=== PATIENT | female | born 1940 | race Caucasian/White ===

== ENCOUNTER 2017-02-22 14:34 | Inpatient (IN) | payer MEDICARE, OTHER ==
[2017-02-22] MEDS ORDERED: Sodium Chloride 0.9% 1,000 ML IV SCH (15:00)
--- NOTE | 2017-02-22 15:37 | EDM.PDOC ---
ED HPI GENERAL MEDICAL PROBLEM - General Chief Complaint: Gastrointestinal Problem Stated Complaint: ILLNESS VIA [facility] Time Seen by Provider: 02/22/17 14:55 Source of Information: Reports: Patient History Limitations: Reports: No Limitations - History of Present Illness INITIAL COMMENTS - FREE TEXT/NARRATIVE: Pt arrivd with history of frequent urination and 2 episodes where she fell and may have passed out. Onset: Today Duration: Hour(s): Location: Reports: Abdomen Associated Symptoms: Reports: Malaise, Syncope, Other ( diarrhea) Lower Back Pain Score (Numeric/FACES): 8 - Related Data Allergies Allergy/AdvReac Type Severity Reaction Status Date / Time amlodipine Allergy Cannot Verified 04/16/15 10:06 Remember ampicillin Allergy Cannot Verified 04/16/15 10:06 Remember aspirin Allergy Cannot Verified 04/16/15 10:06 Remember cephalexin monohydrate Allergy Cannot Verified 04/16/15 10:06 [From Keflex] Remember Cephalosporins Allergy Cannot Verified 04/16/15 10:06 Remember diltiazem Allergy Cannot Verified 04/16/15 10:06 Remember Penicillins Allergy Cannot Verified 04/16/15 10:06 Remember Sulfa (Sulfonamide Allergy Cannot Verified 04/16/15 10:06 Antibiotics) Remember FLU SHOT Allergy Cannot Uncoded 04/16/15 10:06 Remember Home Meds: Home Meds Doxazosin [Cardura] 2 mg PO DAILY 04/16/15 [History] Metoprolol Tartrate 50 mg PO BID 04/16/15 [History] Multivitamin [Daily Multiple Vitamin] 1 tab PO DAILY 04/16/15 [History] Simvastatin [Zocor] 20 mg PO BEDTIME 04/16/15 [History] Spironolact/Hydrochlorothiazid [Spironolactone-HCTZ 25-25] 1 tab PO DAILY [History] Flecainide Acetate [Flecainide Acetate] 1 tab PO BID 02/22/17 [History] Warfarin [Coumadin] 5 mg PO ASDIRECTED 02/22/17 [History] Past Medical History HEENT History: Reports: Impaired Vision Cardiovascular History: Reports: Afib, High Cholesterol Other Cardiovascular History: cardioversion April, Respiratory History: Reports: Bronchitis, Recurrent Gastrointestinal History: Reports: Chronic Diarrhea Other Gastrointestinal History: diarrhea last 1.5 months Musculoskeletal History: Reports: Osteoporosis Oncologic (Cancer) History: Reports: Other (See Below) Other Oncologic History: skin Dermatologic History: Reports: Other (See Below) Other Dermatologic History: 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 - Infectious Disease History Infectious Disease History: Reports: Chicken Pox, Measles, Mumps - Past Surgical History HEENT Surgical History: Reports: Eye Surgery, Tonsillectomy Musculoskeletal Surgical History: Reports: None Dermatological Surgical History: Reports: Skin Biopsy Social & Family History - Family History Family Medical History: Noncontributory - Tobacco Use Smoking Status *Q: Never Smoker Second Hand Smoke Exposure: No - Caffeine Use Caffeine Use: Reports: Coffee - Recreational Drug Use Recreational Drug Use: No ED ROS GENERAL - Review of Systems Review Of Systems: See Below Constitutional: Reports: No Symptoms, Malaise, Weakness HEENT: Reports: No Symptoms Respiratory: Reports: No Symptoms Cardiovascular: Reports: Syncope Endocrine: Reports: No Symptoms GI/Abdominal: Reports: Diarrhea, Other (pt had 2 loose stools ) : Reports: Frequency, Incontinence Musculoskeletal: Reports: No Symptoms Skin: Reports: No Symptoms Neurological: Reports: Syncope Psychiatric: Reports: No Symptoms Hematologic/Lymphatic: Reports: No Symptoms ED EXAM, RENAL/ - Physical Exam Exam: See Below Text/Narrative:: pt arrived with a history of diarrha, 2 syncopal episodes today. She hit her left hip and had some pain in that. She does not have a headache. Exam Limited By: No Limitations General Appearance: Alert, Anxious, Mild Distress, Other (pt is having difficulty giving a clear cut history. pupils are equal and reactive. ) Ears: Normal TMs Nose: Normal Inspection Throat/Mouth: Normal Inspection Head: Atraumatic Neck: Normal Inspection Respiratory/Chest: No Respiratory Distress Cardiovascular: Regular Rate, Rhythm, Tachycardia, Other (pt has atrial fib which is chronic for her. She is on coumadin. ) GI/Abdominal: Soft, Non-Tender (Female) Exam: Deferred Rectal (Female) Exam: Deferred Back Exam: Normal Inspection Extremities: Normal Inspection Neurological: Alert, Oriented, Other (pt is having difficulty giving a clear cut history. ) Course - Vital Signs Last Recorded V/S: Last Vital Signs Temp 36.6 C 02/22/17 15:06 Pulse 112 H 02/22/17 17:07 Resp 16 02/22/17 17:07 BP 102/63 02/22/17 17:07 Pulse Ox 97 01/15/18 17:07 Orthostatic Blood Pressure [ 102/63 Standing] Orthostatic Blood Pressure [ 106/61 Sitting] Orthostatic Blood Pressure [ 111/63 Supine] - Orders/Labs/Meds Orders: Active Orders 24 hr Category Date Time Status EKG Documentation Completion [RC] ASDIRECTED Care 02/22/17 14:56 Active Orthostatic Vital Signs [RC] ASDIRECTED Care 02/22/17 15:24 Active Head wo Cont [CT] Stat Exams 02/22/17 16:26 Ordered Hip Min 2V or 3V Lt [CR] Stat Exams 02/22/17 14:58 Taken Lumbar Spine 2 or 3V [CR] Stat Exams 02/22/17 14:57 Taken Sodium Chloride 0.9% [Normal Saline] 1,000 ml Med 02/22/17 15:00 Active IV ASDIRECTED Sodium Chloride 0.9% with KCl [Normal Saline with 40 Med 02/22/17 16:00 Active mEq KCl] 1,000 ml IV ASDIRECTED EKG 12 Lead [EK] Routine Ther 02/22/17 14:56 Ordered Medication Orders Sodium Chloride (Normal Saline) 1,000 mls @ 999 mls/hr IV ASDIRECTED FADY Last Admin: 02/22/17 15:00 Dose: 999 mls/hr Potassium Chloride/Sodium Chloride (Normal Saline With 40 Meq Kcl) 1,000 mls @ 200 mls/hr IV ASDIRECTED FADY Last Admin: 02/22/17 16:23 Dose: 200 mls/hr Labs: Laboratory Tests 02/22/17 02/22/17 02/22/17 Range/Units 14:54 14:54 14:54 WBC 10.1 (4.5-11.0) K/uL RBC 4.88 (3.30-5.50) M/uL Hgb 16.0 H (12.0-15.0) g/dL Hct 45.4 (36.0-48.0) % MCV 93 (80-98) fL MCH 33 H (27-31) pg MCHC 35 (32-36) % Plt Count 231 (150-400) K/uL Neut % (Auto) 78 H (36-66) % Lymph % (Auto) 16 L (24-44) % [place] % (Auto) 7 H (2-6) % Eos % (Auto) 0 L (2-4) % Baso % (Auto) 0 (0-1) % PT 41.5 H (9.5-12.0) sec INR 3.67 H (0.80-1.20) Sodium 137 L (140-148) mmol/L Potassium 3.1 L (3.6-5.2) mmol/L Chloride 90 L (100-108) mmol/L Carbon Dioxide 34 H (21-32) mmol/L Anion Gap 16.1 H (5.0-14.0) mmol/L BUN 47 H (7-18) mg/dL Creatinine 1.8 H (0.6-1.0) mg/dL Est Cr Clr Drug Dosing 19.70 mL/min Estimated GFR (MDRD) 28 L (>60) Glucose 121 H (74-106) mg/dL Calcium 9.7 (8.5-10.1) mg/dL Total Bilirubin 1.5 H (0.2-1.0) mg/dL AST 32 (15-37) U/L ALT 26 (12-78) U/L Alkaline Phosphatase 111 (46-116) U/L Total Protein 7.5 (6.4-8.2) g/dL Albumin 3.8 (3.4-5.0) g/dL Globulin 3.7 H (2.3-3.5) g/dL Albumin/Globulin Ratio 1.0 L (1.2-2.2) Urine Color Urine Appearance Urine pH (4.5-8.0) Ur Specific [place] (1.008-1.030) Urine Protein (NEGATIVE) mg/dL Urine Glucose (UA) (NEGATIVE) mg/dL Urine Ketones (NEGATIVE) mg/dL Urine Occult Blood (NEGATIVE) Urine Nitrite (NEGATIVE) Urine Bilirubin (NEGATIVE) Urine Urobilinogen (NORMAL) mg/dL Ur Leukocyte Esterase (NEGATIVE) Urine RBC (0-5) Urine WBC (0-5) Ur Epithelial Cells Amorphous Sediment Urine Bacteria Urine Mucus 02/22/17 Range/Units 16:00 WBC (4.5-11.0) K/uL RBC (3.30-5.50) M/uL Hgb (12.0-15.0) g/dL Hct (36.0-48.0) % MCV (80-98) fL MCH (27-31) pg MCHC (32-36) % Plt Count (150-400) K/uL Neut % (Auto) (36-66) % Lymph % (Auto) (24-44) % [place] % (Auto) (2-6) % Eos % (Auto) (2-4) % Baso % (Auto) (0-1) % PT (9.5-12.0) sec INR (0.80-1.20) Sodium (140-148) mmol/L Potassium (3.6-5.2) mmol/L Chloride (100-108) mmol/L Carbon Dioxide (21-32) mmol/L Anion Gap (5.0-14.0) mmol/L BUN (7-18) mg/dL Creatinine (0.6-1.0) mg/dL Est Cr Clr Drug Dosing mL/min Estimated GFR (MDRD) (>60) Glucose (74-106) mg/dL Calcium (8.5-10.1) mg/dL Total Bilirubin (0.2-1.0) mg/dL AST (15-37) U/L ALT (12-78) U/L Alkaline Phosphatase (46-116) U/L Total Protein (6.4-8.2) g/dL Albumin (3.4-5.0) g/dL Globulin (2.3-3.5) g/dL Albumin/Globulin Ratio (1.2-2.2) Urine Color Yellow Urine Appearance Clear Urine pH 6.0 (4.5-8.0) Ur Specific [place] 1.010 (1.008-1.030) Urine Protein Negative (NEGATIVE) mg/dL Urine Glucose (UA) Normal (NEGATIVE) mg/dL Urine Ketones Negative (NEGATIVE) mg/dL Urine Occult Blood Negative (NEGATIVE) Urine Nitrite Negative (NEGATIVE) Urine Bilirubin Negative (NEGATIVE) Urine Urobilinogen Normal (NORMAL) mg/dL Ur Leukocyte Esterase Negative (NEGATIVE) Urine RBC 0-5 (0-5) Urine WBC 0-5 (0-5) Ur Epithelial Cells Rare Amorphous Sediment Not seen Urine Bacteria Few Urine Mucus Not seen Meds: Medications Generic Name Dose Route Start Last Admin Trade Name Freq PRN Reason Stop Dose Admin Sodium Chloride 1,000 mls @ 999 mls/hr 02/22/17 15:00 02/22/17 15:00 Normal Saline IV 999 mls/hr ASDIRECTED FADY Administration Potassium Chloride/Sodium Chloride 1,000 mls @ 200 mls/hr 02/22/17 16:00 16:23 Normal Saline With 40 Meq Kcl IV 200 mls/hr ASDIRECTED FADY Administration - Re-Assessments/Exams Free Text/Narrative Re-Assessment/Exam: 02/22/17 17:16 pt had a hip and lumbar spine xray which was neg. Her creatnine is 1.8. Her k is 3.1. Departure - Departure Time of Disposition: 17:17 Disposition: Admitted As Inpatient 68 Condition: Fair Clinical Impression: Dehydration, Postural hypotension, Hypokalemia, Renal insufficiency, Syncope - Discharge Information Referrals: Wayne Luna Sr, MD [Primary Care Provider] - Forms: ED Department Discharge Care Plan Goals: admit to Dr del valle. - My Orders Last 24 Hours: My Active Orders 02/22/17 14:56 EKG Documentation Completion [RC] ASDIRECTED EKG 12 Lead [EK] Routine 02/22/17 14:57 Lumbar Spine 2 or 3V [CR] Stat 02/22/17 14:58 Hip Min 2V or 3V Lt [CR] Stat 02/22/17 15:00 Sodium Chloride 0.9% [Normal Saline] 1,000 ml IV ASDIRECTED 02/22/17 15:24 Orthostatic Vital Signs [RC] ASDIRECTED 02/22/17 16:00 Sodium Chloride 0.9% with KCl [Normal Saline with 40 mEq KCl] 1,000 ml IV ASDIRECTED 02/22/17 16:26 Head wo Cont [CT] Stat - Assessment/Plan Last 24 Hours: My Active Orders 02/22/17 14:56 EKG Documentation Completion [RC] ASDIRECTED EKG 12 Lead [EK] Routine 02/22/17 14:57 Lumbar Spine 2 or 3V [CR] Stat 02/22/17 14:58 Hip Min 2V or 3V Lt [CR] Stat 02/22/17 15:00 Sodium Chloride 0.9% [Normal Saline] 1,000 ml IV ASDIRECTED 02/22/17 15:24 Orthostatic Vital Signs [RC] ASDIRECTED 02/22/17 16:00 Sodium Chloride 0.9% with KCl [Normal Saline with 40 mEq KCl] 1,000 ml IV ASDIRECTED 02/22/17 16:26 Head wo Cont [CT] Stat
[2017-02-22] MEDS ORDERED: Sodium Chloride 0.9% with KCl 1,000 ML IV SCH ×2 (16:00→18:00)
--- NOTE | 2017-02-22 17:57 | PCM.HP ---
H&P History of Present Illness - General Date of Service: 02/22/17 Admit Problem/Dx: Admission Diagnosis/Problem Admission Diagnosis/Problem Syncope Source of Information: Patient, Provider History Limitations: Reports: No Limitations - History of Present Illness Initial Comments - Free Text/Narative: Addie presents to the emergency room today with several complaints including 2 episodes of syncope as well as diarrhea and weakness. She reports approximately 2 days' worth of diarrhea with 2-3 watery stools per day. She had been constipated prior to onset of the diarrhea and took several doses of laxative for having a large bowel movement and then diarrhea. She has not had any abdominal pain, nausea or vomiting. She does not have any sick contacts. She has had some subjective fevers but no measured temperatures and no shaking chills. She also reports 2 episodes of syncope today where she suddenly found herself laying on the floor. She has had some dizziness and thinks that she had preceding dizziness and lightheadedness prior to her falls. She does not report any chest pain and has not had any shortness of breath beyond her baseline. She did recently complete a one-month course of diuretics to help with lower extremity swelling and reports resolution of the edema. Within the past couple of weeks she was diagnosed with systolic congestive heart failure and ejection fraction between 35 and 40%. She does not currently have orthopnea. Workup in the emergency room revealed acute kidney injury, hypokalemia as well as orthostatic hypotension. She will be admitted for further workup of syncope and management of the preceding abnormalities. Lower Back Pain Score (Numeric/FACES): 8 - Related Data Allergies/Adverse Reactions: Allergies Allergy/AdvReac Type Severity Reaction Status Date / Time amlodipine Allergy Cannot Verified 04/16/15 10:06 Remember ampicillin Allergy Cannot Verified 04/16/15 10:06 Remember aspirin Allergy Cannot Verified 04/16/15 10:06 Remember cephalexin monohydrate Allergy Cannot Verified 04/16/15 10:06 [From Keflex] Remember Cephalosporins Allergy Cannot Verified 04/16/15 10:06 Remember diltiazem Allergy Cannot Verified 04/16/15 10:06 Remember Penicillins Allergy Cannot Verified 04/16/15 10:06 Remember Sulfa (Sulfonamide Allergy Cannot Verified 04/16/15 10:06 Antibiotics) Remember FLU SHOT Allergy Cannot Uncoded 04/16/15 10:06 Remember Home Medications: Home Meds Doxazosin [Cardura] 2 mg PO DAILY 04/16/15 [History] Metoprolol Tartrate 50 mg PO BID 04/16/15 [History] Multivitamin [Daily Multiple Vitamin] 1 tab PO DAILY 04/16/15 [History] Simvastatin [Zocor] 20 mg PO BEDTIME 04/16/15 [History] Spironolact/Hydrochlorothiazid [Spironolactone-HCTZ 25-25] 1 tab PO DAILY [History] Flecainide Acetate [Flecainide Acetate] 1 tab PO BID 02/22/17 [History] Warfarin [Coumadin] 5 mg PO ASDIRECTED 02/22/17 [History] Past Medical History HEENT History: Reports: Impaired Vision Cardiovascular History: Reports: Afib, High Cholesterol Other Cardiovascular History: cardioversion April, Respiratory History: Reports: Bronchitis, Recurrent Gastrointestinal History: Reports: Chronic Diarrhea Other Gastrointestinal History: diarrhea last 1.5 months Musculoskeletal History: Reports: Osteoporosis Oncologic (Cancer) History: Reports: Other (See Below) Other Oncologic History: skin Dermatologic History: Reports: Other (See Below) Other Dermatologic History: 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 - Infectious Disease History Infectious Disease History: Reports: Chicken Pox, Measles, Mumps - Past Surgical History HEENT Surgical History: Reports: Eye Surgery, Tonsillectomy Musculoskeletal Surgical History: Reports: None Dermatological Surgical History: Reports: Skin Biopsy Social & Family History - Family History Family Medical History: Noncontributory Cardiac: Reports: CAD (brother who of [place] in 50's) Neurological: Reports: CVA (mother) - Tobacco Use Smoking Status *Q: Never Smoker Second Hand Smoke Exposure: No - Caffeine Use Caffeine Use: Reports: Coffee - Recreational Drug Use Recreational Drug Use: No H&P Review of Systems - Review of Systems: Review Of Systems: See Below Free Text/Narrative: A complete 12 point review of systems was obtained. Pertinent positives and negatives are noted in the history of present illness. All other systems were reviewed and were negative except as noted. Exam - Exam Exam: See Below - Vital Signs Vital Signs: Last Vital Signs Temp 36.6 C 02/22/17 15:06 Pulse 112 H 02/22/17 17:07 Resp 16 02/22/17 17:07 BP 102/63 02/22/17 17:07 Pulse Ox 97 02/22/17 17:07 Orthostatic Blood Pressure [ 102/63 Standing] Orthostatic Blood Pressure [ 106/61 Sitting] Orthostatic Blood Pressure [ 111/63 Supine] Weight: 51.256 kg - Exam Quality Assessment: No: Supplemental Oxygen General: Alert, Oriented, Cooperative. No: Mild Distress HEENT: Conjunctiva Clear. No: Mucosa Moist & [place] (dry), Scleral Icterus Neck: Supple, Trachea Midline. No: Lymphadenopathy, JVD Lungs: Clear to Auscultation, Normal Respiratory Effort Cardiovascular: Irregular Rhythm, Tachycardia, Systolic Murmur GI/Abdominal Exam: Normal Bowel Sounds, Soft, Non-Tender, No Distention Extremities: No Pedal Edema. No: Increased Warmth Peripheral Pulses: 2+: Dorsalis Pedis (L), Dorsalis Pedis (R) Skin: Warm, Dry. No: Ecchymosis Neuro Extensive - Mental Status: Alert, Oriented x3, Nl Response to Commands Neuro Extensive - Motor, Sensory, Reflexes: CN II-XII Intact. No: Dysarthria, Abnormal Motor, Tremor Psychiatric: Alert, Normal Affect - Patient Data Lab Results Last 24 hrs: Laboratory Results - last 24 hr 02/22/17 02/22/17 02/22/17 Range/Units 14:54 14:54 14:54 WBC 10.1 (4.5-11.0) K/uL RBC 4.88 (3.30-5.50) M/uL Hgb 16.0 H (12.0-15.0) g/dL Hct 45.4 (36.0-48.0) % MCV 93 (80-98) fL MCH 33 H (27-31) pg MCHC 35 (32-36) % Plt Count 231 (150-400) K/uL Neut % (Auto) 78 H (36-66) % Lymph % (Auto) 16 L (24-44) % [place] % (Auto) 7 H (2-6) % Eos % (Auto) 0 L (2-4) % Baso % (Auto) 0 (0-1) % PT 41.5 H (9.5-12.0) sec INR 3.67 H (0.80-1.20) Sodium 137 L (140-148) mmol/L Potassium 3.1 L (3.6-5.2) mmol/L Chloride 90 L (100-108) mmol/L Carbon Dioxide 34 H (21-32) mmol/L Anion Gap 16.1 H (5.0-14.0) mmol/L BUN 47 H (7-18) mg/dL Creatinine 1.8 H (0.6-1.0) mg/dL Est Cr Clr Drug Dosing 19.70 mL/min Estimated GFR (MDRD) 28 L (>60) Glucose 121 H (74-106) mg/dL Calcium 9.7 (8.5-10.1) mg/dL Total Bilirubin 1.5 H (0.2-1.0) mg/dL AST 32 (15-37) U/L ALT 26 (12-78) U/L Alkaline Phosphatase 111 (46-116) U/L Troponin I (0.000-0.056) ng/mL Total Protein 7.5 (6.4-8.2) g/dL Albumin 3.8 (3.4-5.0) g/dL Globulin 3.7 H (2.3-3.5) g/dL Albumin/Globulin Ratio 1.0 L (1.2-2.2) Urine Color Urine Appearance Urine pH (4.5-8.0) Ur Specific [place] (1.008-1.030) Urine Protein (NEGATIVE) mg/dL Urine Glucose (UA) (NEGATIVE) mg/dL Urine Ketones (NEGATIVE) mg/dL Urine Occult Blood (NEGATIVE) Urine Nitrite (NEGATIVE) Urine Bilirubin (NEGATIVE) Urine Urobilinogen (NORMAL) mg/dL Ur Leukocyte Esterase (NEGATIVE) Urine RBC (0-5) Urine WBC (0-5) Ur Epithelial Cells Amorphous Sediment Urine Bacteria Urine Mucus 02/22/17 02/22/17 Range/Units 16:00 17:17 WBC (4.5-11.0) K/uL RBC (3.30-5.50) M/uL Hgb (12.0-15.0) g/dL Hct (36.0-48.0) % MCV (80-98) fL MCH (27-31) pg MCHC (32-36) % Plt Count (150-400) K/uL Neut % (Auto) (36-66) % Lymph % (Auto) (24-44) % [place] % (Auto) (2-6) % Eos % (Auto) (2-4) % Baso % (Auto) (0-1) % PT (9.5-12.0) sec INR (0.80-1.20) Sodium (140-148) mmol/L Potassium (3.6-5.2) mmol/L Chloride (100-108) mmol/L Carbon Dioxide (21-32) mmol/L Anion Gap (5.0-14.0) mmol/L BUN (7-18) mg/dL Creatinine (0.6-1.0) mg/dL Est Cr Clr Drug Dosing mL/min Estimated GFR (MDRD) (>60) Glucose (74-106) mg/dL Calcium (8.5-10.1) mg/dL Total Bilirubin (0.2-1.0) mg/dL AST (15-37) U/L ALT (12-78) U/L Alkaline Phosphatase (46-116) U/L Troponin I < 0.017 (0.000-0.056) ng/mL Total Protein (6.4-8.2) g/dL Albumin (3.4-5.0) g/dL Globulin (2.3-3.5) g/dL Albumin/Globulin Ratio (1.2-2.2) Urine Color Yellow Urine Appearance Clear Urine pH 6.0 (4.5-8.0) Ur Specific [place] 1.010 (1.008-1.030) Urine Protein Negative (NEGATIVE) mg/dL Urine Glucose (UA) Normal (NEGATIVE) mg/dL Urine Ketones Negative (NEGATIVE) mg/dL Urine Occult Blood Negative (NEGATIVE) Urine Nitrite Negative (NEGATIVE) Urine Bilirubin Negative (NEGATIVE) Urine Urobilinogen Normal (NORMAL) mg/dL Ur Leukocyte Esterase Negative (NEGATIVE) Urine RBC 0-5 (0-5) Urine WBC 0-5 (0-5) Ur Epithelial Cells Rare Amorphous Sediment Not seen Urine Bacteria Few Urine Mucus Not seen Result Diagrams: 02/22/17 14:54 02/22/17 14:54 Imaging Impressions Last 24 hrs: Head CT - images personally reviewed - no evidence for stroke, hemorrhage or mass Hip x-ray - no fracture or dislocation Lumbar spine x-ray - no fracture or dislocation EKG INTERPRETATION EKG Date: 02/22/17 Rhythm: A-Fib Rate (Beats/Min): 100 [place]: Normal P-Wave: Variable QRS: Normal ST-T: Normal EKG Interpretation Comments: EKG image was personally reviewed *Q Meaningful Use (ADM) - VTE *Q VTE Criteria *Q: - VTE Risk Assess *Q Each Risk Factor Represents 1 Point: Congestive heart failure (CHF) Total Score 1 Point Risk Factors: 1 Each Risk Factor Represents 2 Points: Age 60 - 74 Years Total Score 2 Point Risk Factors: 2 Each Risk Factor Represents 3 Points: None Total Score 3 Point Risk Factors: 0 Each Risk Factor Represents 5 Points: None Total Score 5 Point Risk Factors: 0 Venous Thromboembolism Risk Factor Score *Q: 3 - Stroke *Q Stroke Criteria *Q: - AMI *Q AMI Criteria *Q: - Problem List (1) Syncope SNOMED Code(s): 144337059 ICD Code: R55 - SYNCOPE AND COLLAPSE Status: Acute Current Visit: Yes Qualifiers: Syncope type: unspecified Qualified Code(s): R55 - Syncope and collapse (2) Acute kidney injury SNOMED Code(s): 48225724 ICD Code: N17.9 - ACUTE KIDNEY FAILURE, UNSPECIFIED Status: Acute Current Visit: Yes (3) Hypokalemia SNOMED Code(s): 99790246 ICD Code: E87.6 - HYPOKALEMIA Status: Acute Current Visit: Yes (4) Chronic atrial fibrillation SNOMED Code(s): 283229831 ICD Code: I48.2 - CHRONIC ATRIAL FIBRILLATION Status: Chronic Current Visit: Yes (5) Systolic congestive heart failure with reduced left ventricular function, NYHA class 1 SNOMED Code(s): 951788598 ICD Code: I50.20 - UNSPECIFIED SYSTOLIC (CONGESTIVE) HEART FAILURE Status: Chronic Current Visit: Yes Problem List Initiated/Reviewed/Updated: Yes Orders Last 24hrs: Active Orders 24 hr Category Date Time Status Patient Status Manage Transfer [TRANSFER] Routine ADT 02/22/17 17:44 Ordered EKG Documentation Completion [RC] ASDIRECTED Care 02/22/17 14:56 Active Orthostatic Vital Signs [RC] ASDIRECTED Care 02/22/17 15:24 Active Head wo Cont [CT] Stat Exams 02/22/17 16:26 Taken Hip Min 2V or 3V Lt [CR] Stat Exams 02/22/17 14:58 Taken Lumbar Spine 2 or 3V [CR] Stat Exams 02/22/17 14:57 Taken Sodium Chloride 0.9% [Normal Saline] 1,000 ml Med 02/22/17 15:00 Active IV ASDIRECTED Sodium Chloride 0.9% with KCl [Normal Saline with 40 Med 02/22/17 18:00 Ordered mEq KCl] 1,000 ml IV ASDIRECTED Resuscitation Status Routine Resus Stat 02/22/17 17:46 Ordered EKG 12 Lead [EK] Routine Ther 02/22/17 14:56 Ordered Medication Orders Sodium Chloride (Normal Saline) 1,000 mls @ 999 mls/hr IV ASDIRECTED FADY Last Admin: 02/22/17 15:00 Dose: 999 mls/hr Potassium Chloride/Sodium Chloride (Normal Saline With 40 Meq Kcl) 1,000 mls @ 125 mls/hr IV ASDIRECTED FADY Assessment/Plan Comment:: ASSESSMENT AND PLAN - Syncope and collapse - suspect intravascular volume depletion with recent round of diuretics on top of her chronic combination diuretic and diarrhea. Still had positive orthostatic vital signs even after 1 L of fluid. Probably further complicated by her chronic atrial fibrillation as well as systolic heart failure. -Continue IV fluids overnight -Hold diuretic -Cardiac monitoring -Repeat orthostatic vital signs in the morning Hypokalemia - likely secondary to renal and GI loss with diuretic use and diarrhea. -By mouth and IV replacement tonight and repeat labs in the morning -Magnesium level in the morning Diarrhea - mild at this time. I suspect this is related to recent laxative use and should resolve without any sort of intervention. Chronic atrial fibrillation - borderline rate control at this time but hopefully will improve once volume status is more appropriate. She is chronically anticoagulated. INR slightly supratherapeutic. -Continue metoprolol and flecainide -Hold warfarin today Systolic congestive heart failure - relatively recent diagnosis with ejection fraction of 35-40%. Complicated by moderate aortic stenosis and mitral regurgitation. She may benefit from an IAN inhibitor to help reduce afterload but will hold off on this with positive orthostatics and hypovolemia. She has a cardiology consultation scheduled in 9 days. -Continue beta no -Hold diuretics for now -Consider IAN inhibitor if blood pressure control is needed Maintenance issues - - DVT prophylaxis - warfarin - GI prophylaxis - not indicated - Nutrition - low sodium diet - Saleh catheter - not indicated CODE STATUS - full code but no prolonged intervention Admission justification - This patient will be admitted for inpatient services and is medically appropriate meeting medical necessity for inpatient admission as outlined in my documentation. I reasonably expect the patient will require inpatient services that span a period time over 2 midnights. I reasonably expect this patient to be discharged or transferred within 96 hours after admission to the [facility]. Disposition - anticipate discharge home after the hospital stay Primary care physician - Dr. Jeremy Paige M.D.
[2017-02-22] MEDS ORDERED: Albuterol 0.083% 2.5 MG/3 ML Neb Soln NEB PRN (18:55)
[2017-02-22] MEDS ORDERED: Potassium Chloride 20 MEQ Tab.ER PO ONE (18:55)
[2017-02-22] MEDS ORDERED: Ondansetron 4 MG Tab.DIS PO PRN (18:55)
[2017-02-22] MEDS: Metoprolol Tartrate 50 MG Tab PO SCH (20:05)
[2017-02-22] MEDS: Simvastatin 20 MG Tab PO SCH (20:05)
[2017-02-22] MEDS: Flecainide 50 MG Tab PO SCH (20:54)
[2017-02-22] MEDS ORDERED: Melatonin 3 MG Tab PO SCH (21:00)
[2017-02-23] MEDS: Acetaminophen 325 MG Tab PO PRN (07:43)
--- NOTE | 2017-02-23 08:42 | CR ---
Hip Min 2V or 3V Lt HISTORY: pain in lower back and left hip FINDINGS: Bony structures are diffusely osteopenic. Mild degenerative and hypertrophic changes are se en about each hip. There are anterolateral osteophytes lower lumbar spine. No acute fracture or dislo cation can be identified. There is no joint effusion. Soft tissues are unremarkable. IMPRESSION: Osteopenia and degenerative changes. No acute abnormality is identified.
[2017-02-23] MEDS ORDERED: Hypromellose 0.4% Ophth Soln 15 ML Bottle EYEBOTH PRN (08:46)
--- NOTE | 2017-02-23 08:48 | CR ---
Lumbar Spine 2 or 3V HISTORY: pt fell and hit her back. FINDINGS: Bony structures are diffusely osteopenic. There is mild to moderate compression fracture of the T12 vertebral body. Acuity is indeterminate. The compression fractures occurred since a lateral chest radiograph of 05/29/2009. No other compression fractures identified. There is degenerative disc space narrowing at L5-S1. Probable facet arthropathy is seen bilaterally at L5-S1. Slight scoliosis c onvex left is noted. There is scattered atherosclerotic vascular calcification. IMPRESSION: Generalized osteopenia. Mild degenerative and hypertrophic changes lumbar spine. Mild to moderate wedge compression fracture of the T12 vertebral body is noted. Acuity is indeterminate.
[2017-02-23] MEDS: Magnesium Sulfate/Water 2 GM in Premix Bag 1 BAG IV SCH ×3 (09:06→21:09)
[2017-02-23] MEDS: Flecainide 50 MG Tab PO SCH ×2 (09:06→21:10)
[2017-02-23] MEDS: Metoprolol Tartrate 50 MG Tab PO SCH (09:17)
--- NOTE | 2017-02-23 11:25 | PCM.PN ---
- General Info Date of Service: 02/23/17 Functional Status: Reports: Pain Controlled, Tolerating Diet - Review of Systems General: Reports: Weakness Musculoskeletal: Reports: Back Pain, Other (muscular chest pain) Systems Review Comment:: No acute events overnight. Has some mild diffuse myalgias, especially in the chest and back area. She thinks these are because of trying to crawl around and drank herself around after her episodes of syncope. No complaints of chest pain or shortness of breath. In general she feels better today than yesterday. Orthostatic vital signs are still abnormal. Potassium level has improved. Creatinine level is improving. She has not had any fevers. - Patient Data Vitals - Most Recent: Last Vital Signs Temp 36.2 C 02/23/17 10:54 Pulse 76 02/23/17 10:54 Resp 18 02/23/17 10:54 BP 94/45 L 02/23/17 10:54 Pulse Ox 93 L 02/23/17 10:54 Orthostatic Blood Pressure [ 78/39 Standing] Orthostatic Blood Pressure [ 80/52 Sitting] Orthostatic Blood Pressure [ 102/49 Supine] Weight - Most Recent: 56.245 kg I&O - Last 24 Hours: Intake & Output 02/22/17 02/23/17 02/23/17 22:59 06:59 14:59 Intake Total 1404 300 Output Total 200 200 300 Balance -200 1204 0 Lab Results Last 24 Hours: Laboratory Results - last 24 hr 02/23/17 02/23/17 02/23/17 Range/Units 04:28 04:28 04:28 WBC 7.7 (4.5-11.0) K/uL RBC 3.94 (3.30-5.50) M/uL Hgb 12.7 D (12.0-15.0) g/dL Hct 37.7 (36.0-48.0) % MCV 96 (80-98) fL MCH 32 H (27-31) pg MCHC 34 (32-36) % Plt Count 175 (150-400) K/uL PT 43.2 H (9.5-12.0) sec INR 3.82 H (0.80-1.20) Sodium 138 L (140-148) mmol/L Potassium 4.4 (3.6-5.2) mmol/L Chloride 101 (100-108) mmol/L Carbon Dioxide 26 (21-32) mmol/L Anion Gap 15.4 H (5.0-14.0) mmol/L BUN 44 H (7-18) mg/dL Creatinine 1.5 H (0.6-1.0) mg/dL Est Cr Clr Drug Dosing 23.63 mL/min Estimated GFR (MDRD) 34 L (>60) Glucose 86 (74-106) mg/dL Calcium 8.2 L D (8.5-10.1) mg/dL Magnesium 1.2 L (1.8-2.4) mg/dL Med Orders - Current: Current Medications Acetaminophen (Tylenol) 650 mg PO Q4H PRN PRN Reason: Pain (Mild 1-3)/fever Last Admin: 02/23/17 07:43 Dose: 650 mg Albuterol (Proventil Neb Soln) 2.5 mg NEB Q4H PRN PRN Reason: Shortness Of Breath/wheezing Artificial Tears (Natural Balance Tears) 0 ml EYEBOTH Q4H PRN PRN Reason: Dry Eyes Flecainide Acetate (Tambocor) 100 mg PO BID [facility] Last Admin: 02/23/17 09:06 Dose: 100 mg Magnesium Sulfate 2 gm/ Premix 50 mls @ 25 mls/hr IV Q6H [facility] Stop: 02/24/17 04:59 Last Admin: 02/23/17 09:06 Dose: 25 mls/hr Metoprolol Tartrate (Lopressor) 50 mg PO BID [facility] Last Admin: 02/23/17 09:17 Dose: Not Given Ondansetron HCl (Zofran Odt) 4 mg PO Q6H PRN PRN Reason: Nausea able to take PO Oxycodone HCl (Oxycodone) 5 mg PO Q4H PRN PRN Reason: Pain (moderate 4-6) Senna/Docusate Sodium (Senna Plus) 1 tab PO BID PRN PRN Reason: Constipation Simvastatin (Zocor) 20 mg PO BEDTIME [facility] Last Admin: 02/22/17 20:05 Dose: 20 mg Discontinued Medications Sodium Chloride (Normal Saline) 1,000 mls @ 999 mls/hr IV ASDIRECTED [facility] Last Admin: 02/22/17 15:00 Dose: 999 mls/hr Potassium Chloride/Sodium Chloride (Normal Saline With 40 Meq Kcl) 1,000 mls @ 200 mls/hr IV ASDIRECTED [facility] Last Admin: 02/22/17 16:23 Dose: 200 mls/hr Potassium Chloride/Sodium Chloride (Normal Saline With 40 Meq Kcl) 1,000 mls @ 125 mls/hr IV ASDIRECTED [facility] Last Admin: 02/23/17 07:06 Dose: 125 mls/hr Melatonin (Melatonin) 9 mg PO BEDTIME [facility] Last Admin: 02/22/17 20:05 Dose: 9 mg Potassium Chloride (Klor-Con M20) 20 meq PO ONETIME ONE Stop: 02/22/17 18:56 Last Admin: 02/22/17 20:04 Dose: 20 meq - Exam Quality Assessment: No: Supplemental Oxygen General: Alert, Oriented, Cooperative, No Acute Distress Neck: Supple Lungs: Clear to Auscultation, Normal Respiratory Effort Cardiovascular: Regular Rate, Irregular Rhythm GI/Abdominal Exam: Soft, No Distention Extremities: No Pedal Edema Psy/Mental Status: Alert, Normal Affect - Problem List & Annotations (1) Syncope SNOMED Code(s): 709157506 Code(s): R55 - SYNCOPE AND COLLAPSE Status: Acute Current Visit: Yes Qualifiers: Syncope type: unspecified Qualified Code(s): R55 - Syncope and collapse (2) Acute kidney injury SNOMED Code(s): 47151916 Code(s): N17.9 - ACUTE KIDNEY FAILURE, UNSPECIFIED Status: Acute Current Visit: Yes (3) Hypokalemia SNOMED Code(s): 27160972 Code(s): E87.6 - HYPOKALEMIA Status: Acute Current Visit: Yes (4) Chronic atrial fibrillation SNOMED Code(s): 930274681 Code(s): I48.2 - CHRONIC ATRIAL FIBRILLATION Status: Chronic Current Visit: Yes (5) Systolic congestive heart failure with reduced left ventricular function, NYHA class 1 SNOMED Code(s): 935163596 Code(s): I50.20 - UNSPECIFIED SYSTOLIC (CONGESTIVE) HEART FAILURE Status: Chronic Current Visit: Yes - Problem List Review Problem List Initiated/Reviewed/Updated: Yes - My Orders Last 24 Hours: My Active Orders 02/22/17 17:46 Resuscitation Status Routine 02/22/17 18:55 Patient Status [ADT] Routine Bedrest Bathroom Privileges [RC] ASDIRECTED Intake and Output [RC] QSHIFT Notify Provider Vital Signs [RC] ASDIRECTED Oxygen Therapy [RC] PRN RT Aerosol Therapy [RC] ASDIRECTED Up With Assistance [RC] ASDIRECTED Vital Signs [RC] Q4H Acetaminophen [Tylenol] 650 mg PO Q4H PRN Albuterol [Proventil Neb Soln] 2.5 mg NEB Q4H PRN Docusate Sodium/Sennosides [Senna Plus] 1 tab PO BID PRN Ondansetron [Zofran ODT] 4 mg PO Q6H PRN oxyCODONE 5 mg PO Q4H PRN Antiembolic Hose [OM.PC] Per Unit Routine 02/23/17 07:00 PT Evaluation and Treatment [CONS] Routine 02/23/17 08:00 Orthostatic Vital Signs [RC] DAILY 02/23/17 08:46 Hypromellose [Natural Balance Tears] 0 ml EYEBOTH Q4H PRN 02/23/17 09:00 Magnesium Sulfate/Water [Magnesium Sulfate 2 GM in Water 50 ML] 2 gm Premix Bag 1 bag IV Q6H 02/23/17 11:24 Discontinue Telemetry Monitoring [Cardiac Monitoring Discontinue] [RC] Click to Edit 02/23/17 11:30 Sodium Chloride 0.9% with KCl [Normal Saline with 40 mEq KCl] 1,000 ml IV ASDIRECTED 02/23/17 21:00 Acetaminophen [Tylenol Extra Strength] 500 mg PO BEDTIME diphenhydrAMINE [Benadryl] 25 mg PO BEDTIME 02/24/17 05:00 BASIC METABOLIC PANEL,BMP [CHEM] Timed CBC W/O DIFF,HEMOGRAM [HEME] Timed (1) INR,PT,PROTHROMBIN TIME [COAG] Timed - Plan Plan:: ASSESSMENT AND PLAN - Syncope and collapse - suspect intravascular volume depletion with recent round of diuretics on top of her chronic combination diuretic and diarrhea. Patient still has positive orthostatic vitals this morning despite volume resuscitation overnight. Blood pressures have been stable in the low normal range. -Continue gentle IV fluids overnight -Hold diuretic -Discontinue Cardiac monitoring -Repeat orthostatic vital signs in the morning Hypokalemia - improved with supplementation. -Repeat level in the morning Hypomagnesemia -being replaced over the next 24 hours. Diarrhea - no recurrence. Chronic atrial fibrillation - adequate rate control. INR still mildly supratherapeutic. Blood pressure is a little on the low side. -Continue flecainide -Hold metoprolol with low blood pressure -Hold warfarin today -INR in the morning Systolic congestive heart failure - relatively recent diagnosis with ejection fraction of 35-40%. Complicated by moderate aortic stenosis and mitral regurgitation. IAN inhibitor could be considered but patient is still hypovolemic and it is not safe to add additional antihypertensive medication. -Continue beta no -Hold diuretics for now -Consider IAN inhibitor if blood pressure control is needed Maintenance issues - - DVT prophylaxis - warfarin - GI prophylaxis - not indicated - Nutrition - low sodium diet Disposition - anticipate discharge home after the hospital stay Al Paige M.D.
[2017-02-23] MEDS: Hypromellose 0.4% Ophth Soln 15 ML Bottle EYEBOTH SCH ×3 (12:52→21:12)
[2017-02-23] MEDS: Sodium Chloride 0.9% with KCl 1,000 ML IV SCH (17:59)
[2017-02-23] MEDS: diphenhydrAMINE 25 MG Cap PO SCH (21:09)
[2017-02-23] MEDS: Acetaminophen 500 MG Tab PO SCH (21:10)
[2017-02-23] MEDS: Simvastatin 20 MG Tab PO SCH (21:10)
[2017-02-24] MEDS: Magnesium Sulfate/Water 2 GM in Premix Bag 1 BAG IV SCH (03:00)
[2017-02-24] MEDS: Hypromellose 0.4% Ophth Soln 15 ML Bottle EYEBOTH SCH ×4 (06:09→21:11)
[2017-02-24] MEDS: Sodium Chloride 0.9% with KCl 1,000 ML IV SCH (07:17)
[2017-02-24] MEDS: Flecainide 50 MG Tab PO SCH ×2 (09:27→21:09)
--- NOTE | 2017-02-24 10:28 | PCM.PN ---
- General Info Date of Service: 02/24/17 Functional Status: Reports: Pain Controlled, Tolerating Diet, Ambulating - Review of Systems General: Reports: Weakness Gastrointestinal: Denies: Diarrhea Systems Review Comment:: No acute events overnight. Kidney function continues to improve. Blood pressures have improved in the past 24 hours. She has not had any fevers. She is short of breath with more than minimal activity but has not been hypoxic. Fatigues easily with physical therapy. Dizziness has improved. Myalgias have improved. - Patient Data Vitals - Most Recent: Last Vital Signs Temp 36.3 C 02/24/17 07:00 Pulse 73 02/24/17 07:00 Resp 20 02/24/17 07:00 BP 124/52 L 02/24/17 07:00 Pulse Ox 94 L 02/24/17 07:00 Orthostatic Blood Pressure [ 78/39 Standing] Orthostatic Blood Pressure [ 80/52 Sitting] Orthostatic Blood Pressure [ 102/49 Supine] Weight - Most Recent: 56.245 kg I&O - Last 24 Hours: Intake & Output 02/23/17 02/24/17 02/24/17 22:59 06:59 14:59 Intake Total 2018 1447 480 Output Total 200 Balance 1818 1447 480 Lab Results Last 24 Hours: Laboratory Results - last 24 hr 02/24/17 02/24/17 02/24/17 Range/Units 05:15 05:15 05:15 WBC 8.3 (4.5-11.0) K/uL RBC 4.14 (3.30-5.50) M/uL Hgb 13.6 (12.0-15.0) g/dL Hct 40.0 (36.0-48.0) % MCV 97 (80-98) fL MCH 33 H (27-31) pg MCHC 34 (32-36) % Plt Count 186 (150-400) K/uL PT 25.8 H (9.5-12.0) sec INR 2.33 H (0.80-1.20) Sodium 135 L (140-148) mmol/L Potassium 4.5 (3.6-5.2) mmol/L Chloride 102 (100-108) mmol/L Carbon Dioxide 25 (21-32) mmol/L Anion Gap 12.5 (5.0-14.0) mmol/L BUN 33 H (7-18) mg/dL Creatinine 1.2 H (0.6-1.0) mg/dL Est Cr Clr Drug Dosing 29.54 mL/min Estimated GFR (MDRD) 44 L (>60) Glucose 99 (74-106) mg/dL Calcium 8.4 L (8.5-10.1) mg/dL Med Orders - Current: Current Medications Acetaminophen (Tylenol) 650 mg PO Q4H PRN PRN Reason: Pain (Mild 1-3)/fever Last Admin: 02/23/17 07:43 Dose: 650 mg Acetaminophen (Tylenol Extra Strength) 500 mg PO BEDTIME [facility] Last Admin: 02/23/17 21:10 Dose: 500 mg Albuterol (Proventil Neb Soln) 2.5 mg NEB Q4H PRN PRN Reason: Shortness Of Breath/wheezing Artificial Tears (Natural Balance Tears) 0 ml EYEBOTH QID [facility] Last Admin: 02/24/17 09:27 Dose: 2 drop Diphenhydramine HCl (Benadryl) 25 mg PO BEDTIME [facility] Last Admin: 02/23/17 21:09 Dose: 25 mg Flecainide Acetate (Tambocor) 100 mg PO BID [facility] Last Admin: 02/24/17 09:27 Dose: 100 mg Metoprolol Tartrate (Lopressor) 50 mg PO BID [facility] Last Admin: 02/23/17 09:17 Dose: Not Given Ondansetron HCl (Zofran Odt) 4 mg PO Q6H PRN PRN Reason: Nausea able to take PO Oxycodone HCl (Oxycodone) 5 mg PO Q4H PRN PRN Reason: Pain (moderate 4-6) Senna/Docusate Sodium (Senna Plus) 1 tab PO BID PRN PRN Reason: Constipation Simvastatin (Zocor) 20 mg PO BEDTIME [facility] Last Admin: 02/23/17 21:10 Dose: 20 mg Warfarin Sodium (Coumadin) 2.5 mg PO ONETIME ONE Stop: 02/24/17 13:01 Discontinued Medications Artificial Tears (Natural Balance Tears) 0 ml EYEBOTH Q4H PRN PRN Reason: Dry Eyes Sodium Chloride (Normal Saline) 1,000 mls @ 999 mls/hr IV ASDIRECTED [facility] Last Admin: 02/22/17 15:00 Dose: 999 mls/hr Potassium Chloride/Sodium Chloride (Normal Saline With 40 Meq Kcl) 1,000 mls @ 200 mls/hr IV ASDIRECTED [facility] Last Admin: 02/22/17 16:23 Dose: 200 mls/hr Potassium Chloride/Sodium Chloride (Normal Saline With 40 Meq Kcl) 1,000 mls @ 125 mls/hr IV ASDIRECTED [facility] Last Admin: 02/23/17 07:06 Dose: 125 mls/hr Magnesium Sulfate 2 gm/ Premix 50 mls @ 25 mls/hr IV Q6H [facility] Stop: 02/24/17 04:59 Last Admin: 02/24/17 03:00 Dose: 25 mls/hr Potassium Chloride/Sodium Chloride (Normal Saline With 40 Meq Kcl) 1,000 mls @ 75 mls/hr IV ASDIRECTED [facility] Last Admin: 02/24/17 07:17 Dose: 75 mls/hr Melatonin (Melatonin) 9 mg PO BEDTIME [facility] Last Admin: 02/22/17 20:05 Dose: 9 mg Potassium Chloride (Klor-Con M20) 20 meq PO ONETIME ONE Stop: 02/22/17 18:56 Last Admin: 02/22/17 20:04 Dose: 20 meq - Exam Quality Assessment: No: Supplemental Oxygen General: Alert, Oriented, Cooperative, No Acute Distress Neck: Supple Lungs: Clear to Auscultation, Normal Respiratory Effort Cardiovascular: Regular Rate, Irregular Rhythm GI/Abdominal Exam: No Distention Extremities: No Pedal Edema Psy/Mental Status: Alert, Normal Affect - Problem List & Annotations (1) Syncope SNOMED Code(s): 842073224 Code(s): R55 - SYNCOPE AND COLLAPSE Status: Acute Current Visit: Yes Qualifiers: Syncope type: unspecified Qualified Code(s): R55 - Syncope and collapse (2) Acute kidney injury SNOMED Code(s): 61793975 Code(s): N17.9 - ACUTE KIDNEY FAILURE, UNSPECIFIED Status: Acute Current Visit: Yes (3) Hypokalemia SNOMED Code(s): 13706674 Code(s): E87.6 - HYPOKALEMIA Status: Acute Current Visit: Yes (4) Chronic atrial fibrillation SNOMED Code(s): 548148107 Code(s): I48.2 - CHRONIC ATRIAL FIBRILLATION Status: Chronic Current Visit: Yes (5) Systolic congestive heart failure with reduced left ventricular function, NYHA class 1 SNOMED Code(s): 856311374 Code(s): I50.20 - UNSPECIFIED SYSTOLIC (CONGESTIVE) HEART FAILURE Status: Chronic Current Visit: Yes - Problem List Review Problem List Initiated/Reviewed/Updated: Yes - My Orders Last 24 Hours: My Active Orders 02/23/17 12:00 Hypromellose [Natural Balance Tears] 0 ml EYEBOTH QID 02/23/17 21:00 Acetaminophen [Tylenol Extra Strength] 500 mg PO BEDTIME diphenhydrAMINE [Benadryl] 25 mg PO BEDTIME 02/24/17 10:24 Convert IV to Saline Lock [OM.PC] Routine 02/24/17 13:00 Warfarin [Coumadin] 2.5 mg PO ONETIME ONE 02/25/17 05:00 BASIC METABOLIC PANEL,BMP [CHEM] Timed INR,PT,PROTHROMBIN TIME [COAG] Timed - Plan Plan:: ASSESSMENT AND PLAN - Syncope and collapse - suspect intravascular volume depletion with recent round of diuretics on top of her chronic combination diuretic and diarrhea. Blood pressure now in the normal range and clinically the patient is doing better. -Saline lock IV -Hold diuretics -Physical therapy Hypokalemia - improved with supplementation. -Repeat level in the morning Hypomagnesemia - has been supplemented. Chronic atrial fibrillation - adequate rate control. INR now therapeutic. Rate control has been acceptable. -Continue flecainide -Continue metoprolol -Restart warfarin -INR in the morning Systolic congestive heart failure - relatively recent diagnosis with ejection fraction of 35-40%. Complicated by moderate aortic stenosis and mitral regurgitation. Dyspnea with more than animal exertion at this time. Diuretics on hold. Holding off on IAN inhibitor with recent hypotension and kidney injury. -Continue beta no -Hold diuretics for now -WAQAS stockings to help with any edema -Consider IAN inhibitor if blood pressure control is needed Maintenance issues - - DVT prophylaxis - warfarin - GI prophylaxis - not indicated - Nutrition - low sodium diet Disposition - anticipate discharge home after the hospital stay Al Paige M.D.
[2017-02-24] MEDS ORDERED: Warfarin 2.5 MG Tab PO ONE (13:00)
[2017-02-24] MEDS: Acetaminophen 325 MG Tab PO PRN (16:30)
[2017-02-24] MEDS: diphenhydrAMINE 25 MG Cap PO SCH (21:09)
[2017-02-24] MEDS: Simvastatin 20 MG Tab PO SCH (21:10)
[2017-02-24] MEDS: Acetaminophen 500 MG Tab PO SCH (21:10)
[2017-02-25] MEDS: oxyCODONE 5 MG Tab PO PRN ×2 (00:18→08:28)
[2017-02-25] MEDS: Hypromellose 0.4% Ophth Soln 15 ML Bottle EYEBOTH SCH ×2 (05:00→10:40)
[2017-02-25] MEDS: Flecainide 50 MG Tab PO SCH (08:15)
[2017-02-25] MEDS: Metoprolol Tartrate 50 MG Tab PO SCH (08:15)
--- NOTE | 2017-02-25 10:15 | PCM.DCSUM1 ---
Discharge Summary - Hospital Course Brief History: 76-year-old female with history of recent diagnosis of mild systolic congestive heart failure, essential hypertension and chronic atrial fibrillation anticoagulated with warfarin presented with 2 episodes of syncope and was admitted for management of weakness, dehydration, acute kidney injury and hypokalemia. - Discharge Data Discharge Date: 02/25/17 Discharge Disposition: DC/Tfer to SNF 03 Condition: Fair - Discharge Diagnosis/Problem(s) (1) Syncope SNOMED Code(s): 868076961 ICD Code: R55 - SYNCOPE AND COLLAPSE Status: Acute Current Visit: Yes Qualifiers: Syncope type: unspecified Qualified Code(s): R55 - Syncope and collapse (2) Acute kidney injury SNOMED Code(s): 37947095 ICD Code: N17.9 - ACUTE KIDNEY FAILURE, UNSPECIFIED Status: Acute Current Visit: Yes (3) Hypokalemia SNOMED Code(s): 79433189 ICD Code: E87.6 - HYPOKALEMIA Status: Acute Current Visit: Yes (4) Chronic atrial fibrillation SNOMED Code(s): 169923663 ICD Code: I48.2 - CHRONIC ATRIAL FIBRILLATION Status: Chronic Current Visit: Yes (5) Systolic congestive heart failure with reduced left ventricular function, NYHA class 1 SNOMED Code(s): 330199311 ICD Code: I50.20 - UNSPECIFIED SYSTOLIC (CONGESTIVE) HEART FAILURE Status: Chronic Current Visit: Yes - Patient Summary/Data Consults: Consultations 02/23/17 07:00 PT Evaluation and Treatment [CONS] Routine Please Evaluate and Treat. PT Reason for Consult: Strengthening This query below is only for informational purposes and is not editable. Hospital Course: Addie presented to the emergency room with generalized weakness and 2 episodes of syncope. workup in the emergency room revealed evidence for intravascular volume depletion, acute kidney injury and hypokalemia. She also had suboptimally -controlled atrial fibrillation. She was admitted to the hospital for further management. Regarding the volume depletion and acute kidney injury, I suspect these were related to her chronic diuretic use further complicated by a recent course of furosemide to treat lower extremity edema. These have responded quite well to IV fluids. We have discontinued her diuretic antihypertensive medication. Her blood pressure has remained stable since this was discontinued. Her creatinine has improved from 1.8 at the time of admission down to 1.1. Orthostatic vital signs have improved with IV fluids. Symptomatically she feels better and has not had recurrence of her syncope. She was noted to have a low potassium on arrival but this responded well to supplementation in the emergency room. We did also replace a low magnesium level. She does continue to have a generalized weakness as well as some dyspnea related to her heart failure as discussed below. I believe she'll benefit from subacute rehabilitation prior to returning home. At the time of admission her INR was mildly subtherapeutic and we did hold her warfarin for 2 days. This has been restarted per her usual schedule of 2.5 mg on Wednesday and 5 mg the rest of the week. Her INR at the time of discharge is 2.1. She would benefit from a recheck early next week. She was recently diagnosed with mild systolic congestive heart failure. We have not had any difficulties with lower extremity edema or orthopnea during the hospital stay. We have been managing the edema using WAQAS stockings. She is on a beta no. She is not currently on an IAN inhibitor because of recent hypotension and intravascular volume depletion. A low-dose IAN inhibitor could be considered if low blood pressure allows once things have stabilized after hospital discharge. She will have a prescription for an as needed diuretic if she does develop pitting lower extremity edema but I'm not going to schedule it given recent difficulties with dehydration and hypokalemia. She did have diarrhea prior to presentation and this was likely related to her large doses of laxatives used prior to admission. There have been no issues with diarrhea during the hospital stay. - Patient Instructions Diet: Low Sodium Activity: As Tolerated Showering/Bathing: May Shower Notify Provider of: Fever, Increased Pain Other/Special Instructions: 1. You were in the hospital for management of syncope, dehydration and hypokalemia. I suspect all of these were related to intravascular volume depletion related to diuretic use. We have discontinued your blood pressure medication and your diuretic to manage lower extremity edema will be used as needed. 2. Stop taking your spironolactone/ hydrochlorothiazide combination. 3. Referral physical and occupational therapy for strengthening. 4. INR check per Coumadin clinic recommendations. Level is 2.1 at the time of discharge. 5. Knee-high WAQAS stocking - please apply to both legs in the morning and may remove at night. 6. Please seek medical attention if you have recurrence of syncope, sudden onset of shortness of breath or if you develop profound weakness. - Discharge Plan Prescriptions/Med Rec: Acetaminophen [Tylenol] 650 mg PO Q4H PRN #100 tablet PRN Reason: Pain (Mild 1-3)/fever Furosemide 20 mg PO DAILY PRN #30 tablet PRN Reason: Edema Hypromellose [Natural Balance Tears] 2 drop EYEBOTH QID #1 bottle oxyCODONE 5 mg PO Q4H PRN #20 tablet PRN Reason: Pain (Moderate 4-6) Warfarin [Coumadin] 5 mg PO ASDIRECTED #30 tablet Home Medications: Home Meds Multivitamin [Daily Multiple Vitamin] 1 tab PO DAILY 04/16/15 [History] Simvastatin [Zocor] 20 mg PO BEDTIME 04/16/15 [History] Acetaminophen [Tylenol] 650 mg PO Q4H PRN #100 tablet 02/25/17 [Rx] Flecainide Acetate 1 tab PO BID #0 02/25/17 [Rx] Furosemide 20 mg PO DAILY PRN #30 tablet 02/25/17 [Rx] Hypromellose [Natural Balance Tears] 2 drop EYEBOTH QID #1 bottle 02/25/17 [Rx] Metoprolol Tartrate 50 mg PO BID #0 02/25/17 [Rx] Warfarin [Coumadin] 5 mg PO ASDIRECTED #30 tablet 02/25/17 [Rx] oxyCODONE 5 mg PO Q4H PRN #20 tablet 02/25/17 [Rx] Patient Handouts: Orthostatic Hypotension, Hypokalemia Referrals: Wayne Luna Sr, MD [Primary Care Provider] - - Discharge Summary/Plan Comment DC Time >30 min.: Yes (40 - new snf discharge) - Patient Data Vitals - Most Recent: Last Vital Signs Temp 36.3 C 02/25/17 07:00 Pulse 101 H 02/25/17 08:15 Resp 22 H 02/25/17 07:00 BP 118/65 02/25/17 08:15 Pulse Ox 96 02/25/17 07:00 Orthostatic Blood Pressure [ 118/57 Standing] Orthostatic Blood Pressure [ 112/63 Sitting] Orthostatic Blood Pressure [ 133/66 Supine] Weight - Most Recent: 56.245 kg I&O - Last 24 hours: Intake & Output 02/24/17 02/25/17 02/25/17 22:59 06:59 14:59 Intake Total 450 360 360 Output Total 400 600 100 Balance 50 -240 260 Lab Results - Last 24 hrs: Laboratory Results - last 24 hr 02/25/17 02/25/17 Range/Units 05:00 05:00 PT 24.1 H (9.5-12.0) sec INR 2.18 H (0.80-1.20) Sodium 134 L (140-148) mmol/L Potassium 4.7 (3.6-5.2) mmol/L Chloride 101 (100-108) mmol/L Carbon Dioxide 27 (21-32) mmol/L Anion Gap 10.7 (5.0-14.0) mmol/L BUN 28 H (7-18) mg/dL Creatinine 1.1 H (0.6-1.0) mg/dL Est Cr Clr Drug Dosing 32.23 mL/min Estimated GFR (MDRD) 49 L (>60) Glucose 92 (74-106) mg/dL Calcium 8.1 L (8.5-10.1) mg/dL Med Orders - Current: Current Medications Acetaminophen (Tylenol) 650 mg PO Q4H PRN PRN Reason: Pain (Mild 1-3)/fever Last Admin: 02/24/17 16:30 Dose: 650 mg Acetaminophen (Tylenol Extra Strength) 500 mg PO BEDTIME [facility] Last Admin: 02/24/17 21:10 Dose: 500 mg Albuterol (Proventil Neb Soln) 2.5 mg NEB Q4H PRN PRN Reason: Shortness Of Breath/wheezing Artificial Tears (Natural Balance Tears) 0 ml EYEBOTH QID [facility] Last Admin: 02/25/17 05:00 Dose: 2 drop Diphenhydramine HCl (Benadryl) 25 mg PO BEDTIME [facility] Last Admin: 02/24/17 21:09 Dose: 25 mg Flecainide Acetate (Tambocor) 100 mg PO BID [facility] Last Admin: 02/25/17 08:15 Dose: 100 mg Metoprolol Tartrate (Lopressor) 50 mg PO BID [facility] Last Admin: 02/25/17 08:15 Dose: 50 mg Ondansetron HCl (Zofran Odt) 4 mg PO Q6H PRN PRN Reason: Nausea able to take PO Oxycodone HCl (Oxycodone) 5 mg PO Q4H PRN PRN Reason: Pain (moderate 4-6) Last Admin: 02/25/17 08:28 Dose: 5 mg Senna/Docusate Sodium (Senna Plus) 1 tab PO BID PRN PRN Reason: Constipation Last Admin: 02/25/17 08:28 Dose: 1 tab Simvastatin (Zocor) 20 mg PO BEDTIME [facility] Last Admin: 02/24/17 21:10 Dose: 20 mg Discontinued Medications Artificial Tears (Natural Balance Tears) 0 ml EYEBOTH Q4H PRN PRN Reason: Dry Eyes Sodium Chloride (Normal Saline) 1,000 mls @ 999 mls/hr IV ASDIRECTED [facility] Last Admin: 02/22/17 15:00 Dose: 999 mls/hr Potassium Chloride/Sodium Chloride (Normal Saline With 40 Meq Kcl) 1,000 mls @ 200 mls/hr IV ASDIRECTED [facility] Last Admin: 02/22/17 16:23 Dose: 200 mls/hr Potassium Chloride/Sodium Chloride (Normal Saline With 40 Meq Kcl) 1,000 mls @ 125 mls/hr IV ASDIRECTED [facility] Last Admin: 02/23/17 07:06 Dose: 125 mls/hr Magnesium Sulfate 2 gm/ Premix 50 mls @ 25 mls/hr IV Q6H [facility] Stop: 02/24/17 04:59 Last Admin: 02/24/17 03:00 Dose: 25 mls/hr Potassium Chloride/Sodium Chloride (Normal Saline With 40 Meq Kcl) 1,000 mls @ 75 mls/hr IV ASDIRECTED [facility] Last Admin: 02/24/17 07:17 Dose: 75 mls/hr Melatonin (Melatonin) 9 mg PO BEDTIME [facility] Last Admin: 02/22/17 20:05 Dose: 9 mg Potassium Chloride (Klor-Con M20) 20 meq PO ONETIME ONE Stop: 02/22/17 18:56 Last Admin: 02/22/17 20:04 Dose: 20 meq Warfarin Sodium (Coumadin) 2.5 mg PO ONETIME ONE Stop: 02/24/17 13:01 Last Admin: 02/24/17 13:46 Dose: 2.5 mg - Exam Quality Assessment: Denies: Supplemental Oxygen General: Reports: Alert, Oriented, Cooperative, No Acute Distress Neck: Reports: Supple Lungs: Reports: Normal Respiratory Effort GI/Abdominal Exam: No Distention Extremities: No Pedal Edema Psy/Mental Status: Reports: Alert, Normal Affect *Q Meaningful Use (DIS) - VTE *Q VTE Criteria *Q: - Stroke *Q Stroke Criteria *Q: - AMI *Q AMI Criteria *Q:
[2017-02-25 11:55] VITALS: BP 117/80
== END 2017-02-25 13:20 | DRG 312 ==
LOC: JP.ED 14:34 → JP.MS 17:44
PROVIDERS: ADMIT Internal Medicine; ATTEND Internal Medicine
DX: R55 Syncope and collapse (principal); N17.9 Acute kidney failure, unspecified; I50.20 Unspecified systolic (congestive) heart failure; E86.0 Dehydration; E87.6 Hypokalemia; N28.9 Disorder of kidney and ureter, unspecified; I48.2 Chronic atrial fibrillation; I11.0 Hypertensive heart disease with heart failure; W19.XXXA Unspecified fall, initial encounter; Z79.01 Long term (current) use of anticoagulants; M25.552 Pain in left hip; M54.9 Dorsalgia, unspecified; E83.42 Hypomagnesemia; E78.00 Pure hypercholesterolemia, unspecified; Z85.828 Personal history of other malignant neoplasm of skin; Z88.0 Allergy status to penicillin; Z88.8 Allergy status to other drugs, medicaments and biological substances; R53.1 Weakness; R79.1 Abnormal coagulation profile; I95.9 Hypotension, unspecified; T50.995A Adverse effect of other drugs, medicaments and biological substances, initial encounter; T50.2X5A Adverse effect of carbonic-anhydrase inhibitors, benzothiadiazides and other diuretics, initial encounter
CPT/HCPCS: 36415; 70450; 72100 ×2; 73502 ×2; 80053; 81001; 84484; 85025; 85610; 93005; 93010; 96360; 96361; 99285 ×2; J3480; J7040; 80048; 83735; 85027; 97110-GP; 97162-GP; 97530-GP; A9270-GY; J3475; J7030

== ENCOUNTER 2017-03-12 23:40 | Inpatient (IN) | payer MEDICARE, OTHER ==
[2017-03-12] MEDS ORDERED: Furosemide 40 MG/4 ML VIAL IVPUSH ONE (23:52)
--- NOTE | 2017-03-13 | EDM.PDOC ---
ED HPI GENERAL MEDICAL PROBLEM - General Chief Complaint: Respiratory Problem Stated Complaint: DIFFICULT TIME BREATHING Time Seen by Provider: 03/13/17 00:00 Source of Information: Reports: Patient, EMS History Limitations: Reports: No Limitations - History of Present Illness INITIAL COMMENTS - FREE TEXT/NARRATIVE: pt was very short of breath earlier in the day. She took some lasix and it did improve. This PM she became very sob and she did not have any chest pain. She has a history of chronic atrial fib. Her heart rate is 145. Onset: Gradual Duration: Hour(s):, Other (increasing sob. ) Location: Reports: Chest Associated Symptoms: Reports: Shortness of Breath Denies Pain Score (Numeric/FACES): 0 - Related Data Allergies Allergy/AdvReac Type Severity Reaction Status Date / Time amlodipine Allergy Cannot Verified 03/13/17 00:41 Remember ampicillin Allergy Cannot Verified 03/13/17 00:41 Remember cephalexin monohydrate Allergy Cannot Verified 03/13/17 00:41 [From Keflex] Remember Cephalosporins Allergy Cannot Verified 03/13/17 00:41 Remember diltiazem Allergy Cannot Verified 03/13/17 00:41 Remember Penicillins Allergy Cannot Verified 03/13/17 00:41 Remember Sulfa (Sulfonamide Allergy Cannot Verified 03/13/17 00:41 Antibiotics) Remember FLU SHOT Allergy Cannot Uncoded 03/13/17 00:41 Remember Home Meds: Home Meds Multivitamin [Daily Multiple Vitamin] 1 tab PO DAILY 04/16/15 [History] Simvastatin [Zocor] 20 mg PO BEDTIME 04/16/15 [History] Acetaminophen [Tylenol] 650 mg PO Q4H PRN #100 tablet 02/25/17 [Rx] Flecainide Acetate 1 tab PO BID #0 02/25/17 [Rx] Furosemide 20 mg PO DAILY PRN #30 tablet 02/25/17 [Rx] Hypromellose [Natural Balance Tears] 2 drop EYEBOTH QID #1 bottle 02/25/17 [Rx] Warfarin [Coumadin] 5 mg PO ASDIRECTED #30 tablet 02/25/17 [Rx] oxyCODONE 5 mg PO Q4H PRN #20 tablet 02/25/17 [Rx] Metoprolol Tartrate 12.5 mg PO BID 03/13/17 [History] Past Medical History HEENT History: Reports: Impaired Vision Cardiovascular History: Reports: Afib, High Cholesterol, Hypertension, Syncope Other Cardiovascular History: cardioversion April, Respiratory History: Reports: Bronchitis, Recurrent Gastrointestinal History: Reports: Chronic Diarrhea Other Gastrointestinal History: diarrhea last 1.5 months Musculoskeletal History: Reports: Osteoporosis Oncologic (Cancer) History: Reports: Other (See Below) Other Oncologic History: skin Dermatologic History: Reports: Other (See Below) Other Dermatologic History: 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 - Infectious Disease History Infectious Disease History: Reports: Chicken Pox, Measles, Mumps - Past Surgical History HEENT Surgical History: Reports: Cataract Surgery, Eye Surgery, Tonsillectomy GI Surgical History: Reports: Cholecystectomy Musculoskeletal Surgical History: Reports: None Dermatological Surgical History: Reports: Skin Biopsy Social & Family History - Family History Family Medical History: Noncontributory Cardiac: Reports: CAD Neurological: Reports: CVA - Tobacco Use Smoking Status *Q: Never Smoker Second Hand Smoke Exposure: No - Caffeine Use Caffeine Use: Reports: Coffee - Recreational Drug Use Recreational Drug Use: No ED ROS GENERAL - Review of Systems Review Of Systems: See Below Constitutional: Reports: No Symptoms HEENT: Reports: No Symptoms Respiratory: Reports: Shortness of Breath, Wheezing, Cough Cardiovascular: Reports: Palpitations, Other (pt has a history of chronic atrial fib. ) Endocrine: Reports: No Symptoms GI/Abdominal: Reports: No Symptoms : Reports: No Symptoms Musculoskeletal: Reports: No Symptoms Skin: Reports: No Symptoms ED EXAM, GENERAL - Physical Exam Exam: See Below Free Text/Narrative:: pt arrived with markesd sob and wheezing. She has been having problems all day. she has a history of chf. She also has a fever. Exam Limited By: Other (pt is quite obtunded.) General Appearance: Alert, Lethargic, Moderate Distress Ears: Normal TMs Nose: Normal Inspection Throat/Mouth: Normal Inspection Head: Atraumatic Neck: Normal Inspection Respiratory/Chest: Respiratory Distress, Decreased Breath Sounds, Crackles, Rales, Wheezing Cardiovascular: Irregularly Irregular, Other ( tach with a rate of 145) GI/Abdominal: Soft, Non-Tender (Female) Exam: Deferred Rectal (Female) Exam: Deferred Back Exam: Normal Inspection Extremities: Pedal Edema Neurological: Alert, Other (pt is qute obtunded. ) Course - Vital Signs Last Recorded V/S: Last Vital Signs Temp 37.9 C 03/12/17 23:59 Pulse 144 H 03/12/17 23:59 Resp 32 H 03/12/17 23:59 BP 113/92 H 03/13/17 00:18 Pulse Ox 96 03/12/17 23:59 - Orders/Labs/Meds Orders: Active Orders 24 hr Category Date Time Status BIPAP Adult [RT BiPAP/CPAP] [RC] ASDIRECTED Care 03/12/17 23:54 Active EKG Documentation Completion [RC] ASDIRECTED Care 03/12/17 23:53 Active Saleh Catheter Insertion [Insert Urinary Catheter] [OM. Care 03/12/17 23:55 Ordered PC] Q24H RT Aerosol Therapy [RC] ASDIRECTED Care 03/13/17 00:21 Active Urinary Catheter Assessment [RC] ASDIRECTED Care 03/12/17 23:56 Active Chest 1V Frontal [CR] Stat Exams 03/12/17 23:52 Taken LACTIC ACID [CHEM] Stat Lab 03/13/17 00:59 Ordered EKG 12 Lead [EK] Routine Ther 03/12/17 23:53 Ordered Labs: Laboratory Tests 03/12/17 03/12/17 03/12/17 Range/Units 00:07 00:07 00:07 WBC 8.5 (4.5-11.0) K/uL RBC 3.65 (3.30-5.50) M/uL Hgb 11.9 L (12.0-15.0) g/dL Hct 34.5 L (36.0-48.0) % MCV 95 (80-98) fL MCH 33 H (27-31) pg MCHC 35 (32-36) % Plt Count 354 (150-400) K/uL Neut % (Auto) 76 H (36-66) % Lymph % (Auto) 14 L (24-44) % [place] % (Auto) 9 H (2-6) % Eos % (Auto) 1 L (2-4) % Baso % (Auto) 0 (0-1) % PT (9.5-12.0) sec INR (0.80-1.20) Puncture Site ABG pH (7.350-7.450) ABG pCO2 (35.0-42.0) mmHg ABG pO2 (75.0-100.0) mmHg ABG HCO3 (22.0-26.0) mmol/L ABG Total CO2 (21.0-25.0) mmol/L ABG O2 Saturation (95.0-98.0) % ABG O2 Content (15.0-23.0) %vol ABG Base Excess mm/L ABG Hemoglobin (12.0-16.0) g/dL ABG Oxyhemoglobin % ABG Carboxyhemoglobin (0.0-1.6) % ABG Methemoglobin % Patricio Test O2 Delivery Device Oxygen Flow Rate L Sodium 124 L (140-148) mmol/L Potassium 4.0 (3.6-5.2) mmol/L Chloride 89 L (100-108) mmol/L Carbon Dioxide 22 (21-32) mmol/L Anion Gap 17.0 H (5.0-14.0) mmol/L BUN 20 H (7-18) mg/dL Creatinine 0.9 (0.6-1.0) mg/dL Est Cr Clr Drug Dosing 39.39 mL/min Estimated GFR (MDRD) > 60 (>60) Glucose 165 H (74-106) mg/dL Calcium 8.5 (8.5-10.1) mg/dL Total Bilirubin 0.7 (0.2-1.0) mg/dL AST 34 (15-37) U/L ALT 28 (12-78) U/L Alkaline Phosphatase 181 H (46-116) U/L Creatine Kinase 39 (26-192) U/L Troponin I < 0.017 (0.000-0.056) ng/mL NT-Pro-B Natriuret Pep (5-125) pg/mL Total Protein 6.4 (6.4-8.2) g/dL Albumin 2.9 L (3.4-5.0) g/dL Globulin 3.5 (2.3-3.5) g/dL Albumin/Globulin Ratio 0.8 L (1.2-2.2) Urine Color Urine Appearance Urine pH (4.5-8.0) Ur Specific [place] (1.008-1.030) Urine Protein (NEGATIVE) mg/dL Urine Glucose (UA) (NEGATIVE) mg/dL Urine Ketones (NEGATIVE) mg/dL Urine Occult Blood (NEGATIVE) Urine Nitrite (NEGATIVE) Urine Bilirubin (NEGATIVE) Urine Urobilinogen (NORMAL) mg/dL Ur Leukocyte Esterase (NEGATIVE) Urine RBC (0-5) Urine WBC (0-5) Ur Epithelial Cells Amorphous Sediment Urine Bacteria Urine Mucus 03/12/17 03/12/17 03/12/17 Range/Units 00:07 23:51 23:55 WBC (4.5-11.0) K/uL RBC (3.30-5.50) M/uL Hgb (12.0-15.0) g/dL Hct (36.0-48.0) % MCV (80-98) fL MCH (27-31) pg MCHC (32-36) % Plt Count (150-400) K/uL Neut % (Auto) (36-66) % Lymph % (Auto) (24-44) % [place] % (Auto) (2-6) % Eos % (Auto) (2-4) % Baso % (Auto) (0-1) % PT 15.4 H (9.5-12.0) sec INR 1.42 H (0.80-1.20) Puncture Site Lt brachial ABG pH 7.415 (7.350-7.450) ABG pCO2 35.4 (35.0-42.0) mmHg ABG pO2 85.6 (75.0-100.0) mmHg ABG HCO3 22.3 (22.0-26.0) mmol/L ABG Total CO2 20.1 L (21.0-25.0) mmol/L ABG O2 Saturation 96.1 (95.0-98.0) % ABG O2 Content 15.9 (15.0-23.0) %vol ABG Base Excess -1.3 mm/L ABG Hemoglobin 12.0 (12.0-16.0) g/dL ABG Oxyhemoglobin 93.7 % ABG Carboxyhemoglobin 2.0 H (0.0-1.6) % ABG Methemoglobin 0.5 % Patricio Test Not performed O2 Delivery Device Nasal cannula Oxygen Flow Rate 2 L Sodium (140-148) mmol/L Potassium (3.6-5.2) mmol/L Chloride (100-108) mmol/L Carbon Dioxide (21-32) mmol/L Anion Gap (5.0-14.0) mmol/L BUN (7-18) mg/dL Creatinine (0.6-1.0) mg/dL Est Cr Clr Drug Dosing mL/min Estimated GFR (MDRD) (>60) Glucose (74-106) mg/dL Calcium (8.5-10.1) mg/dL Total Bilirubin (0.2-1.0) mg/dL AST (15-37) U/L ALT (12-78) U/L Alkaline Phosphatase (46-116) U/L Creatine Kinase (26-192) U/L Troponin I (0.000-0.056) ng/mL NT-Pro-B Natriuret Pep 6125 H (5-125) pg/mL Total Protein (6.4-8.2) g/dL Albumin (3.4-5.0) g/dL Globulin (2.3-3.5) g/dL Albumin/Globulin Ratio (1.2-2.2) Urine Color Urine Appearance Urine pH (4.5-8.0) Ur Specific [place] (1.008-1.030) Urine Protein (NEGATIVE) mg/dL Urine Glucose (UA) (NEGATIVE) mg/dL Urine Ketones (NEGATIVE) mg/dL Urine Occult Blood (NEGATIVE) Urine Nitrite (NEGATIVE) Urine Bilirubin (NEGATIVE) Urine Urobilinogen (NORMAL) mg/dL Ur Leukocyte Esterase (NEGATIVE) Urine RBC (0-5) Urine WBC (0-5) Ur Epithelial Cells Amorphous Sediment Urine Bacteria Urine Mucus 03/13/17 Range/Units 00:29 WBC (4.5-11.0) K/uL RBC (3.30-5.50) M/uL Hgb (12.0-15.0) g/dL Hct (36.0-48.0) % MCV (80-98) fL MCH (27-31) pg MCHC (32-36) % Plt Count (150-400) K/uL Neut % (Auto) (36-66) % Lymph % (Auto) (24-44) % [place] % (Auto) (2-6) % Eos % (Auto) (2-4) % Baso % (Auto) (0-1) % PT (9.5-12.0) sec INR (0.80-1.20) Puncture Site ABG pH (7.350-7.450) ABG pCO2 (35.0-42.0) mmHg ABG pO2 (75.0-100.0) mmHg ABG HCO3 (22.0-26.0) mmol/L ABG Total CO2 (21.0-25.0) mmol/L ABG O2 Saturation (95.0-98.0) % ABG O2 Content (15.0-23.0) %vol ABG Base Excess mm/L ABG Hemoglobin (12.0-16.0) g/dL ABG Oxyhemoglobin % ABG Carboxyhemoglobin (0.0-1.6) % ABG Methemoglobin % Patricio Test O2 Delivery Device Oxygen Flow Rate L Sodium (140-148) mmol/L Potassium (3.6-5.2) mmol/L Chloride (100-108) mmol/L Carbon Dioxide (21-32) mmol/L Anion Gap (5.0-14.0) mmol/L BUN (7-18) mg/dL Creatinine (0.6-1.0) mg/dL Est Cr Clr Drug Dosing mL/min Estimated GFR (MDRD) (>60) Glucose (74-106) mg/dL Calcium (8.5-10.1) mg/dL Total Bilirubin (0.2-1.0) mg/dL AST (15-37) U/L ALT (12-78) U/L Alkaline Phosphatase (46-116) U/L Creatine Kinase (26-192) U/L Troponin I (0.000-0.056) ng/mL NT-Pro-B Natriuret Pep (5-125) pg/mL Total Protein (6.4-8.2) g/dL Albumin (3.4-5.0) g/dL Globulin (2.3-3.5) g/dL Albumin/Globulin Ratio (1.2-2.2) Urine Color Yellow Urine Appearance Clear Urine pH 5.0 (4.5-8.0) Ur Specific [place] 1.010 (1.008-1.030) Urine Protein Negative (NEGATIVE) mg/dL Urine Glucose (UA) Normal (NEGATIVE) mg/dL Urine Ketones Negative (NEGATIVE) mg/dL Urine Occult Blood Negative (NEGATIVE) Urine Nitrite Negative (NEGATIVE) Urine Bilirubin Negative (NEGATIVE) Urine Urobilinogen Normal (NORMAL) mg/dL Ur Leukocyte Esterase Negative (NEGATIVE) Urine RBC Not seen (0-5) Urine WBC Not seen (0-5) Ur Epithelial Cells Not seen Amorphous Sediment Not seen Urine Bacteria Not seen Urine Mucus Few Meds: Medications Discontinued Medications Generic Name Dose Route Start Last Admin Trade Name Mildred PRN Reason Stop Dose Admin Albuterol 2.5 mg 03/13/17 00:21 03/13/17 00:29 Proventil Neb Soln NEB 03/13/17 00:22 2.5 mg ONETIME ONE Administration Furosemide 60 mg 03/12/17 23:52 03/13/17 00:18 Lasix IVPUSH 03/12/17 23:53 60 mg ONETIME ONE Administration - Re-Assessments/Exams Free Text/Narrative Re-Assessment/Exam: 03/13/17 00:27 bblood gases were obtained and she is not retaining co2. She is very wet on chest xray so will use bipap. 03/13/17 01:00 pt has normnal cardiac enzymes and her creatnine is good. She has a normal wbc but she has a temp/ Departure - Departure Time of Disposition: 01:01 Disposition: Admitted As Inpatient 68 Condition: Fair Clinical Impression: CHF (congestive heart failure), Atrial fibrillation with rapid ventricular response - Discharge Information Referrals: Wayne Luna Sr, MD [Primary Care Provider] - Forms: ED Department Discharge Care Plan Goals: admit to Dr Luna. - My Orders Last 24 Hours: My Active Orders 03/12/17 23:52 Chest 1V Frontal [CR] Stat 03/12/17 23:53 EKG Documentation Completion [RC] ASDIRECTED EKG 12 Lead [EK] Routine 03/12/17 23:54 BIPAP Adult [RT BiPAP/CPAP] [RC] ASDIRECTED 03/12/17 23:55 Saleh Catheter Insertion [Insert Urinary Catheter] [OM.PC] Q24H 03/12/17 23:56 Urinary Catheter Assessment [RC] ASDIRECTED 03/13/17 00:21 RT Aerosol Therapy [RC] ASDIRECTED 03/13/17 00:59 LACTIC ACID [CHEM] Stat - Assessment/Plan Last 24 Hours: My Active Orders 03/12/17 23:52 Chest 1V Frontal [CR] Stat 03/12/17 23:53 EKG Documentation Completion [RC] ASDIRECTED EKG 12 Lead [EK] Routine 03/12/17 23:54 BIPAP Adult [RT BiPAP/CPAP] [RC] ASDIRECTED 03/12/17 23:55 Saleh Catheter Insertion [Insert Urinary Catheter] [OM.PC] Q24H 03/12/17 23:56 Urinary Catheter Assessment [RC] ASDIRECTED 03/13/17 00:21 RT Aerosol Therapy [RC] ASDIRECTED 03/13/17 00:59 LACTIC ACID [CHEM] Stat
[2017-03-13] MEDS ORDERED: Albuterol 0.083% 2.5 MG/3 ML Neb Soln NEB ONE (00:21)
[2017-03-13] MEDS ORDERED: Acetaminophen 325 MG Tab PO PRN (01:18)
--- NOTE | 2017-03-13 01:47 | PCM.HP ---
H&P History of Present Illness - General Date of Service: 03/13/17 Admit Problem/Dx: Admission Diagnosis/Problem Admission Diagnosis/Problem CHF, Congestive heart failure Source of Information: Patient, EMS, Penitentiary Records, Old Records - History of Present Illness Initial Comments - Free Text/Narative: Addie is well known to me and she has been in the [facility]. She has a known history of CHF. She has become increasingly short of breath with a tachycardia for the last 2-3 days. Lasix was given which helped relieve some of the distress but then became worse tonight with shortness of breath and generalized weakness with a rapid respiratory rate. When she left the hospital recently she was on Flecanide but was not one it presently. She had been on Metoprolol but was recently changed by a Operations Systems Specialist to Coreg and Lisinopril. Her blood pressure was so low with that change I titrated off the Lisinopril to maintain BP >100 systolic. She came in tonight in Pulmonary Edema. Onset of Symptoms: Reports: Gradual Duration of Symptoms: Reports: Day(s): Associated Symptoms: Reports: Shortness of Breath, Weakness Denies Pain Score (Numeric/FACES): 0 - Related Data Allergies/Adverse Reactions: Allergies Allergy/AdvReac Type Severity Reaction Status Date / Time amlodipine Allergy Cannot Verified 03/13/17 00:41 Remember ampicillin Allergy Cannot Verified 03/13/17 00:41 Remember cephalexin monohydrate Allergy Cannot Verified 03/13/17 00:41 [From Keflex] Remember Cephalosporins Allergy Cannot Verified 03/13/17 00:41 Remember diltiazem Allergy Cannot Verified 03/13/17 00:41 Remember Penicillins Allergy Cannot Verified 03/13/17 00:41 Remember Sulfa (Sulfonamide Allergy Cannot Verified 03/13/17 00:41 Antibiotics) Remember FLU SHOT Allergy Cannot Uncoded 02 00:41 Remember Home Medications: Home Meds Multivitamin [Daily Multiple Vitamin] 1 tab PO DAILY 04/16/15 [History] Simvastatin [Zocor] 20 mg PO BEDTIME 04/16/15 [History] Acetaminophen [Tylenol] 650 mg PO Q4H PRN #100 tablet 02/25/17 [Rx] Flecainide Acetate 1 tab PO BID #0 02/25/17 [Rx] Furosemide 20 mg PO DAILY PRN #30 tablet 02/25/17 [Rx] Hypromellose [Natural Balance Tears] 2 drop EYEBOTH QID #1 bottle 02/25/17 [Rx] Warfarin [Coumadin] 5 mg PO ASDIRECTED #30 tablet 02/25/17 [Rx] oxyCODONE 5 mg PO Q4H PRN #20 tablet 02/25/17 [Rx] Carvedilol [Coreg] 12.5 mg PO BID 03/13/17 [History] Metoprolol Tartrate 12.5 mg PO BID 03/13/17 [History] Past Medical History HEENT History: Reports: Impaired Vision Cardiovascular History: Reports: Afib, High Cholesterol, Hypertension, Syncope Other Cardiovascular History: cardioversion April, Respiratory History: Reports: Bronchitis, Recurrent Gastrointestinal History: Reports: Chronic Diarrhea Other Gastrointestinal History: diarrhea last 1.5 months Musculoskeletal History: Reports: Osteoporosis Oncologic (Cancer) History: Reports: Other (See Below) Other Oncologic History: skin Dermatologic History: Reports: Other (See Below) Other Dermatologic History: 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 - Infectious Disease History Infectious Disease History: Reports: Chicken Pox, Measles, Mumps - Past Surgical History HEENT Surgical History: Reports: Cataract Surgery, Eye Surgery, Tonsillectomy GI Surgical History: Reports: Cholecystectomy Musculoskeletal Surgical History: Reports: None Dermatological Surgical History: Reports: Skin Biopsy Social & Family History - Family History Family Medical History: Noncontributory Cardiac: Reports: CAD Neurological: Reports: CVA - Tobacco Use Smoking Status *Q: Never Smoker Second Hand Smoke Exposure: No - Caffeine Use Caffeine Use: Reports: Coffee - Recreational Drug Use Recreational Drug Use: No H&P Review of Systems - Review of Systems: Review Of Systems: See Below General: Reports: Weakness, Decreased Appetite HEENT: Reports: No Symptoms Pulmonary: Reports: Shortness of Breath Cardiovascular: Reports: Palpitations, Dyspnea on Exertion Gastrointestinal: Reports: No Symptoms Musculoskeletal: Reports: No Symptoms Skin: Reports: No Symptoms Psychiatric: Reports: No Symptoms Neurological: Reports: Weakness, Gait Disturbance Exam - Exam Exam: See Below - Vital Signs Vital Signs: Last Vital Signs Temp 100.3 F 03/12/17 23:59 Pulse 144 H 03/12/17 23:59 Resp 32 H 03/12/17 23:59 BP 113/92 H 03/13/17 00:18 Pulse Ox 96 03/12/17 23:59 Weight: 132 lb 1.6 oz - Exam General: Moderate Distress HEENT: PERRLA, Hearing Intact, Mucosa Moist & [place], Nares Patent, Normal Nasal Septum, Posterior Pharynx Clear, Conjunctiva Clear, EOMI, EACs Clear, TMs Clear Neck: Supple, Trachea Midline, JVD Lungs: Decreased Breath Sounds, Wheezing Cardiovascular: Regular Rate, Tachycardia GI/Abdominal Exam: Normal Bowel Sounds, Soft Back Exam: Normal Inspection, Full Range of Motion, NT Extremities: Pedal Edema Peripheral Pulses: 1+: Radial (L), Radial (R) Skin: Warm, Dry Neurological: Cranial Nerves Intact Neuro Extensive - Motor, Sensory, Reflexes: CN II-XII Intact DTR: 1+: Bicep (L), Bicep (R) Psychiatric: Alert, Labile Mood - Patient Data Lab Results Last 24 hrs: Laboratory Results - last 24 hr 03/12/17 03/12/17 03/12/17 Range/Units 00:07 00:07 00:07 WBC 8.5 (4.5-11.0) K/uL RBC 3.65 (3.30-5.50) M/uL Hgb 11.9 L (12.0-15.0) g/dL Hct 34.5 L (36.0-48.0) % MCV 95 (80-98) fL MCH 33 H (27-31) pg MCHC 35 (32-36) % Plt Count 354 (150-400) K/uL Neut % (Auto) 76 H (36-66) % Lymph % (Auto) 14 L (24-44) % [place] % (Auto) 9 H (2-6) % Eos % (Auto) 1 L (2-4) % Baso % (Auto) 0 (0-1) % PT (9.5-12.0) sec INR (0.80-1.20) Puncture Site ABG pH (7.350-7.450) ABG pCO2 (35.0-42.0) mmHg ABG pO2 (75.0-100.0) mmHg ABG HCO3 (22.0-26.0) mmol/L ABG Total CO2 (21.0-25.0) mmol/L ABG O2 Saturation (95.0-98.0) % ABG O2 Content (15.0-23.0) %vol ABG Base Excess mm/L ABG Hemoglobin (12.0-16.0) g/dL ABG Oxyhemoglobin % ABG Carboxyhemoglobin (0.0-1.6) % ABG Methemoglobin % Patricio Test O2 Delivery Device Oxygen Flow Rate L Sodium 124 L (140-148) mmol/L Potassium 4.0 (3.6-5.2) mmol/L Chloride 89 L (100-108) mmol/L Carbon Dioxide 22 (21-32) mmol/L Anion Gap 17.0 H (5.0-14.0) mmol/L BUN 20 H (7-18) mg/dL Creatinine 0.9 (0.6-1.0) mg/dL Est Cr Clr Drug Dosing 39.39 mL/min Estimated GFR (MDRD) > 60 (>60) Glucose 165 H (74-106) mg/dL Lactic Acid (0.4-2.0) mmol/L Calcium 8.5 (8.5-10.1) mg/dL Total Bilirubin 0.7 (0.2-1.0) mg/dL AST 34 (15-37) U/L ALT 28 (12-78) U/L Alkaline Phosphatase 181 H (46-116) U/L Creatine Kinase 39 (26-192) U/L Troponin I < 0.017 (0.000-0.056) ng/mL NT-Pro-B Natriuret Pep (5-125) pg/mL Total Protein 6.4 (6.4-8.2) g/dL Albumin 2.9 L (3.4-5.0) g/dL Globulin 3.5 (2.3-3.5) g/dL Albumin/Globulin Ratio 0.8 L (1.2-2.2) Urine Color Urine Appearance Urine pH (4.5-8.0) Ur Specific Rice (1.008-1.030) Urine Protein (NEGATIVE) mg/dL Urine Glucose (UA) (NEGATIVE) mg/dL Urine Ketones (NEGATIVE) mg/dL Urine Occult Blood (NEGATIVE) Urine Nitrite (NEGATIVE) Urine Bilirubin (NEGATIVE) Urine Urobilinogen (NORMAL) mg/dL Ur Leukocyte Esterase (NEGATIVE) Urine RBC (0-5) Urine WBC (0-5) Ur Epithelial Cells Amorphous Sediment Urine Bacteria Urine Mucus 0203/12/17 03/12/17 Range/Units 00:07 23:51 23:55 WBC (4.5-11.0) K/uL RBC (3.30-5.50) M/uL Hgb (12.0-15.0) g/dL Hct (36.0-48.0) % MCV (80-98) fL MCH (27-31) pg MCHC (32-36) % Plt Count (150-400) K/uL Neut % (Auto) (36-66) % Lymph % (Auto) (24-44) % [place] % (Auto) (2-6) % Eos % (Auto) (2-4) % Baso % (Auto) (0-1) % PT 15.4 H (9.5-12.0) sec INR 1.42 H (0.80-1.20) Puncture Site Lt brachial ABG pH 7.415 (7.350-7.450) ABG pCO2 35.4 (35.0-42.0) mmHg ABG pO2 85.6 (75.0-100.0) mmHg ABG HCO3 22.3 (22.0-26.0) mmol/L ABG Total CO2 20.1 L (21.0-25.0) mmol/L ABG O2 Saturation 96.1 (95.0-98.0) % ABG O2 Content 15.9 (15.0-23.0) %vol ABG Base Excess -1.3 mm/L ABG Hemoglobin 12.0 (12.0-16.0) g/dL ABG Oxyhemoglobin 93.7 % ABG Carboxyhemoglobin 2.0 H (0.0-1.6) % ABG Methemoglobin 0.5 % Patricio Test Not performed O2 Delivery Device Nasal cannula Oxygen Flow Rate 2 L Sodium (140-148) mmol/L Potassium (3.6-5.2) mmol/L Chloride (100-108) mmol/L Carbon Dioxide (21-32) mmol/L Anion Gap (5.0-14.0) mmol/L BUN (7-18) mg/dL Creatinine (0.6-1.0) mg/dL Est Cr Clr Drug Dosing mL/min Estimated GFR (MDRD) (>60) Glucose (74-106) mg/dL Lactic Acid (0.4-2.0) mmol/L Calcium (8.5-10.1) mg/dL Total Bilirubin (0.2-1.0) mg/dL AST (15-37) U/L ALT (12-78) U/L Alkaline Phosphatase (46-116) U/L Creatine Kinase (26-192) U/L Troponin I (0.000-0.056) ng/mL NT-Pro-B Natriuret Pep 6125 H (5-125) pg/mL Total Protein (6.4-8.2) g/dL Albumin (3.4-5.0) g/dL Globulin (2.3-3.5) g/dL Albumin/Globulin Ratio (1.2-2.2) Urine Color Urine Appearance Urine pH (4.5-8.0) Ur Specific Rice (1.008-1.030) Urine Protein (NEGATIVE) mg/dL Urine Glucose (UA) (NEGATIVE) mg/dL Urine Ketones (NEGATIVE) mg/dL Urine Occult Blood (NEGATIVE) Urine Nitrite (NEGATIVE) Urine Bilirubin (NEGATIVE) Urine Urobilinogen (NORMAL) mg/dL Ur Leukocyte Esterase (NEGATIVE) Urine RBC (0-5) Urine WBC (0-5) Ur Epithelial Cells Amorphous Sediment Urine Bacteria Urine Mucus 03/13/17 03/13/17 Range/Units 00:29 00:59 WBC (4.5-11.0) K/uL RBC (3.30-5.50) M/uL Hgb (12.0-15.0) g/dL Hct (36.0-48.0) % MCV (80-98) fL MCH (27-31) pg MCHC (32-36) % Plt Count (150-400) K/uL Neut % (Auto) (36-66) % Lymph % (Auto) (24-44) % [place] % (Auto) (2-6) % Eos % (Auto) (2-4) % Baso % (Auto) (0-1) % PT (9.5-12.0) sec INR (0.80-1.20) Puncture Site ABG pH (7.350-7.450) ABG pCO2 (35.0-42.0) mmHg ABG pO2 (75.0-100.0) mmHg ABG HCO3 (22.0-26.0) mmol/L ABG Total CO2 (21.0-25.0) mmol/L ABG O2 Saturation (95.0-98.0) % ABG O2 Content (15.0-23.0) %vol ABG Base Excess mm/L ABG Hemoglobin (12.0-16.0) g/dL ABG Oxyhemoglobin % ABG Carboxyhemoglobin (0.0-1.6) % ABG Methemoglobin % Patricio Test O2 Delivery Device Oxygen Flow Rate L Sodium (140-148) mmol/L Potassium (3.6-5.2) mmol/L Chloride (100-108) mmol/L Carbon Dioxide (21-32) mmol/L Anion Gap (5.0-14.0) mmol/L BUN (7-18) mg/dL Creatinine (0.6-1.0) mg/dL Est Cr Clr Drug Dosing mL/min Estimated GFR (MDRD) (>60) Glucose (74-106) mg/dL Lactic Acid 1.4 (0.4-2.0) mmol/L Calcium (8.5-10.1) mg/dL Total Bilirubin (0.2-1.0) mg/dL AST (15-37) U/L ALT (12-78) U/L Alkaline Phosphatase (46-116) U/L Creatine Kinase (26-192) U/L Troponin I (0.000-0.056) ng/mL NT-Pro-B Natriuret Pep (5-125) pg/mL Total Protein (6.4-8.2) g/dL Albumin (3.4-5.0) g/dL Globulin (2.3-3.5) g/dL Albumin/Globulin Ratio (1.2-2.2) Urine Color Yellow Urine Appearance Clear Urine pH 5.0 (4.5-8.0) Ur Specific Rice 1.010 (1.008-1.030) Urine Protein Negative (NEGATIVE) mg/dL Urine Glucose (UA) Normal (NEGATIVE) mg/dL Urine Ketones Negative (NEGATIVE) mg/dL Urine Occult Blood Negative (NEGATIVE) Urine Nitrite Negative (NEGATIVE) Urine Bilirubin Negative (NEGATIVE) Urine Urobilinogen Normal (NORMAL) mg/dL Ur Leukocyte Esterase Negative (NEGATIVE) Urine RBC Not seen (0-5) Urine WBC Not seen (0-5) Ur Epithelial Cells Not seen Amorphous Sediment Not seen Urine Bacteria Not seen Urine Mucus Few Result Diagrams: 03/12/17 00:07 03/12/17 00:07 Giuliano Results Last 24 hrs: Microbiology 03/13/17 00:34 Influenza Type A Antigen Screen - Final Nasopharyngeal Swab - Nare, Left NEGATIVE INFLUENZA A VIRUS AG Influenza Type B Antigen Screen - Final NEGATIVE INFLUENZA B VIRUS AG *Q Meaningful Use (ADM) - VTE *Q VTE Criteria *Q: - Stroke *Q Stroke Criteria *Q: - AMI *Q AMI Criteria *Q: Problem List Initiated/Reviewed/Updated: Yes Orders Last 24hrs: Active Orders 24 hr Category Date Time Status Patient Status [ADT] Routine ADT 03/13/17 01:13 Ordered Ambulate [RC] QID Care 03/13/17 01:13 Ordered BIPAP Adult [RT BiPAP/CPAP] [RC] ASDIRECTED Care 03/12/17 23:54 Active EKG Documentation Completion [RC] ASDIRECTED Care 03/12/17 23:53 Active Saleh Catheter Insertion [Insert Urinary Catheter] [OM. Care 03/12/17 23:55 Ordered PC] Q24H Height and Weight [RC] DAILY Care 03/13/17 01:13 Ordered Intake and Output [RC] QSHIFT Care 03/13/17 01:15 Ordered Oxygen Therapy [RC] PRN Care 03/13/17 01:13 Ordered RT Aerosol Therapy [RC] ASDIRECTED Care 03/13/17 00:21 Active Up With Assistance [RC] ASDIRECTED Care 03/13/17 01:13 Ordered Up to Chair [RC] QID Care 03/13/17 01:13 Ordered Urinary Catheter Assessment [RC] ASDIRECTED Care 03/12/17 23:56 Active VTE/DVT Education [RC] Per Unit Routine Care 03/13/17 01:13 Ordered Vital Signs [RC] Q4H Care 03/13/17 01:13 Ordered 2 Gram Sodium Diet [DIET] Diet 03/13/17 Breakfast Ordered Chest 1V Frontal [CR] Stat Exams 03/12/17 23:52 Taken BASIC METABOLIC PANEL,BMP [CHEM] DAILY Lab 03/13/17 05:11 Ordered Acetaminophen [Tylenol] Med 03/13/17 01:18 Ordered 650 mg PO Q4H PRN Carvedilol [Coreg] Med 03/13/17 09:00 Ordered 12.5 mg PO BID Digoxin [Lanoxin] Med 03/13/17 01:39 Once 0.5 mcg PO ONETIME ONE Flecainide [Tambocor] Med 03/13/17 09:00 Ordered 100 mg PO BID Furosemide [Lasix] 100 mg Med 03/13/17 02:00 Ordered Sodium Chloride 0.9% [Normal Saline] 90 ml IV DAILY Hypromellose [Natural Balance Tears] Med 03/13/17 06:00 Ordered 2 drop EYEBOTH QID Simvastatin [Zocor] Med 03/13/17 21:00 Ordered 20 mg PO BEDTIME Sodium Chloride 0.9% [Normal Saline] 1,000 ml Med 03/13/17 01:15 Ordered IV ASDIRECTED Warfarin [Coumadin] Med 03/13/17 01:30 Ordered 5 mg PO ASDIRECTED Resuscitation Status Routine Resus Stat 03/13/17 01:13 Ordered EKG 12 Lead [EK] Routine Ther 03/12/17 23:53 Ordered Medication Orders Acetaminophen (Tylenol) 650 mg PO Q4H PRN PRN Reason: Pain (Mild 1-3)/fever Artificial Tears (Natural Balance Tears) ml EYEBOTH QID FADY Carvedilol (Coreg) 12.5 mg PO BID FADY Digoxin (Lanoxin) 0.5 mcg PO ONETIME ONE Stop: 03/13/17 01:40 Flecainide Acetate (Tambocor) 100 mg PO BID FADY Sodium Chloride (Normal Saline) 1,000 mls @ 30 mls/hr IV ASDIRECTED FADY Furosemide 100 mg/ Sodium (Chloride) 100 mls @ 6 mls/hr IV DAILY FADY PRN Reason: 6 MG/HR Simvastatin (Zocor) 20 mg PO BEDTIME FADY Warfarin Sodium (Coumadin) 5 mg PO ASDIRECTED FADY Assessment/Plan Comment:: Assessmen/Plan: #1. Pulmonary Edema with history of CHF Will start lasix IV drip and titrate. #2. History of HTN: #3. Atrial Fib. Chronic with tachycardia controlled by Flecainide but recently off. #4. Hx of Melanoma of the face: Treated and stable. #5. History of Endocarditis: #6. Possible infiltrate right lower lobe. Will watch for pneumonia and treat if evident.
[2017-03-13] MEDS ORDERED: Furosemide 100 MG in Sodium Chloride 0.9% 90 ML IV SCH ×2 (02:00→19:00)
[2017-03-13] MEDS: Sodium Chloride 0.9% 1,000 ML IV SCH (02:42)
[2017-03-13] MEDS: Warfarin 5 MG Tab PO SCH ×2 (02:58→17:11)
[2017-03-13] MEDS: Digoxin 500 MCG/2 ML Amp IV SCH ×2 (03:04→03:25)
[2017-03-13] MEDS: Hypromellose 0.4% Ophth Soln 15 ML Bottle EYEBOTH SCH ×4 (06:10→21:38)
[2017-03-13] MEDS ORDERED: Carvedilol 12.5 MG Tab PO SCH (08:00)
[2017-03-13] MEDS: Flecainide 50 MG Tab PO SCH ×2 (08:13→20:33)
[2017-03-13] MEDS: Furosemide 100 MG in Sodium Chloride 0.9% 90 ML IV SCH (10:26)
[2017-03-13] MEDS: Digoxin 125 MCG Tab PO SCH (13:17)
[2017-03-13] MEDS ORDERED: Lisinopril 2.5 MG Tab PO PRN (14:31)
[2017-03-13] MEDS ORDERED: Carvedilol 6.25 MG Tab PO SCH ×2 (17:00→19:16)
--- NOTE | 2017-03-13 19:24 | PCM.PN ---
- General Info Date of Service: 03/13/17 Subjective Update: Feeling better still short of breath Functional Status: Reports: Pain Controlled - Review of Systems General: Reports: Weakness HEENT: Reports: No Symptoms Pulmonary: Reports: Cough, Sputum (clear production) Cardiovascular: Reports: Dyspnea on Exertion Gastrointestinal: Reports: No Symptoms Genitourinary: Reports: No Symptoms Musculoskeletal: Reports: No Symptoms Skin: Reports: No Symptoms Neurological: Reports: No Symptoms Psychiatric: Reports: No Symptoms - Patient Data Vitals - Most Recent: Last Vital Signs Temp 98.2 F 03/13/17 02:30 Pulse 74 03/13/17 17:55 Resp 32 H 03/13/17 17:55 BP 68/40 L 03/13/17 17:55 Pulse Ox 95 03/13/17 17:55 Weight - Most Recent: 132 lb 15.02 oz I&O - Last 24 Hours: Intake & Output 03/13/17 03/13/17 03/13/17 06:59 14:59 22:59 Intake Total 23 450 279 Output Total 1400 900 Balance -1377 450 -621 Lab Results Last 24 Hours: Laboratory Results - last 24 hr 03/13/17 03/13/17 Range/Units 05:00 05:25 PT 16.7 H (9.5-12.0) sec INR 1.53 H (0.80-1.20) Sodium 129 L (140-148) mmol/L Potassium 3.6 (3.6-5.2) mmol/L Chloride 91 L (100-108) mmol/L Carbon Dioxide 26 (21-32) mmol/L Anion Gap 15.6 H (5.0-14.0) mmol/L BUN 20 H (7-18) mg/dL Creatinine 1.0 (0.6-1.0) mg/dL Est Cr Clr Drug Dosing 35.45 mL/min Estimated GFR (MDRD) 54 L (>60) Glucose 114 H (74-106) mg/dL Calcium 8.8 (8.5-10.1) mg/dL Med Orders - Current: Current Medications Acetaminophen (Tylenol) 650 mg PO Q4H PRN PRN Reason: Pain (Mild 1-3)/fever Artificial Tears (Natural Balance Tears) 0 ml EYEBOTH QID FADY Last Admin: 03/13/17 16:57 Dose: 2 drop Carvedilol (Coreg) 3.125 mg PO BIDMEALS [facility] Digoxin (Lanoxin) 125 mcg PO DAILY@1300 [facility] Last Admin: 03/13/17 13:17 Dose: 125 mcg Flecainide Acetate (Tambocor) 100 mg PO BID [facility] Last Admin: 03/13/17 08:13 Dose: 100 mg Sodium Chloride (Normal Saline) 1,000 mls @ 30 mls/hr IV ASDIRECTED [facility] Last Admin: 03/13/17 02:42 Dose: 30 mls/hr Furosemide 100 mg/ Sodium (Chloride) 100 mls @ 2 mls/hr IV TITRATE FADY; 2 MG/HR PRN Reason: Protocol Last Admin: 03/13/17 10:26 Dose: 2 mg/hr, 2 mls/hr Lisinopril (Prinivil) 2.5 mg PO DAILY PRN PRN Reason: SBP > 100 Last Admin: 03/13/17 14:39 Dose: 2.5 mg Simvastatin (Zocor) 20 mg PO BEDTIME [facility] Warfarin Sodium (Coumadin) 5 mg PO SuMoTuThFrSa@1800 [facility] Last Admin: 03/13/17 17:11 Dose: 5 mg Warfarin Sodium (Coumadin) 2.5 mg PO We@1800 [facility] Discontinued Medications Albuterol (Proventil Neb Soln) 2.5 mg NEB ONETIME ONE Stop: 03/13/17 00:22 Last Admin: 03/13/17 00:29 Dose: 2.5 mg Carvedilol (Coreg) 12.5 mg PO BIDMEALS [facility] Last Admin: 03/13/17 08:12 Dose: 12.5 mg Carvedilol (Coreg) 6.25 mg PO BIDMEALS [facility] Last Admin: 03/13/17 16:58 Dose: 6.25 mg Digoxin (Lanoxin) 250 - 500 mcg IV ONETIME [facility] Last Admin: 03/13/17 03:25 Dose: 250 mcg Furosemide (Lasix) 60 mg IVPUSH ONETIME ONE Stop: 03/12/17 23:53 Last Admin: 03/13/17 00:18 Dose: 60 mg Furosemide 100 mg/ Sodium (Chloride) 100 mls @ 6 mls/hr IV DAILY [facility] PRN Reason: 6 MG/HR Last Admin: 03/13/17 02:52 Dose: 6 mg/hr, 6 mls/hr Furosemide 100 mg/ Sodium (Chloride) 100 mls @ 6 mls/hr IV Q16H FADY PRN Reason: 6 MG/HR - Exam General: Alert, Cooperative, Mild Distress HEENT: Pupils Equal, Pupils Reactive, EOMI, Mucous Membr. Moist/[place] Neck: Supple Lungs: Clear to Auscultation, Normal Respiratory Effort Cardiovascular: Irregular Rhythm GI/Abdominal Exam: Normal Bowel Sounds, Soft, Non-Tender, No Organomegaly, No Distention, No Abnormal Bruit, No Mass, Pelvis Stable Extremities: Pedal Edema Peripheral Pulses: 1+: Radial (L), Radial (R) Skin: Warm, Dry, Intact Psy/Mental Status: Alert, Normal Affect, Normal Mood - Problem List Review Problem List Initiated/Reviewed/Updated: Yes - My Orders Last 24 Hours: My Active Orders 03/13/17 01:18 Acetaminophen [Tylenol] 650 mg PO Q4H PRN 03/13/17 01:30 Warfarin [Coumadin] 5 mg PO [id number]@1800 03/13/17 06:00 Hypromellose [Natural Balance Tears] 0 ml EYEBOTH QID 03/13/17 09:00 Flecainide [Tambocor] 100 mg PO BID 03/13/17 10:00 Furosemide [Lasix] 100 mg Sodium Chloride 0.9% [Normal Saline] 90 ml IV TITRATE 03/13/17 13:00 Digoxin [Lanoxin] 125 mcg PO DAILY@1300 03/13/17 14:31 Lisinopril [Prinivil] 2.5 mg PO DAILY PRN 03/13/17 19:16 Carvedilol [Coreg] 3.125 mg PO BIDMEALS 03/13/17 21:00 Simvastatin [Zocor] 20 mg PO BEDTIME 03/14/17 05:00 INR,PT,PROTHROMBIN TIME [COAG] DAILY 03/15/17 05:00 INR,PT,PROTHROMBIN TIME [COAG] DAILY 03/16/17 05:00 INR,PT,PROTHROMBIN TIME [COAG] DAILY 03/17/17 05:00 INR,PT,PROTHROMBIN TIME [COAG] DAILY 03/17/17 18:00 Warfarin [Coumadin] 2.5 mg PO We@1800 03/18/17 05:00 INR,PT,PROTHROMBIN TIME [COAG] DAILY - Plan Plan:: Assessmen/Plan: #1. Pulmonary Edema with history of CHF Continue lasix IV drip and titrate to lower dose. #2. History of HTN: Hypotensive now #3. Atrial Fib. Chronic with tachycardia controlled by Flecainide but recently off. Restarted #4. Hx of Melanoma of the face: Treated and stable. #5. History of Endocarditis: #6. Possible infiltrate right lower lobe. Will watch for pneumonia and treat if evident. Will repeat the CXR Tomorrow morning.
[2017-03-13] MEDS: Simvastatin 20 MG Tab PO SCH (20:33)
[2017-03-13] MEDS ORDERED: DOBUTamine/Dextrose 5%-Water 250 MG/250 ML BAG IV SCH (22:00)
[2017-03-14] MEDS ORDERED: Norepinephrine 4 MG in Dextrose 5% in Water 246 ML IV SCH ×2 (04:15)
[2017-03-14] MEDS: Sodium Chloride 0.9% 250 ML IV SCH ×2 (04:21→05:03)
[2017-03-14] MEDS: Hypromellose 0.4% Ophth Soln 15 ML Bottle EYEBOTH SCH ×4 (07:41→21:01)
[2017-03-14] MEDS ORDERED: Carvedilol 3.125 MG Tab PO SCH (08:51)
[2017-03-14] MEDS: Carvedilol 3.125 MG Tab PO SCH ×2 (08:52→17:03)
[2017-03-14] MEDS: Flecainide 50 MG Tab PO SCH ×2 (08:53→20:16)
[2017-03-14] MEDS: Furosemide 100 MG in Sodium Chloride 0.9% 90 ML IV SCH (08:55)
[2017-03-14] MEDS: Sodium Chloride 0.9% 1,000 ML IV SCH (12:09)
[2017-03-14] MEDS: Digoxin 125 MCG Tab PO SCH (13:28)
--- NOTE | 2017-03-14 13:39 | PCM.PN ---
- General Info Date of Service: 03/14/17 Subjective Update: Still has shortness of breath. - Review of Systems General: Reports: Weakness HEENT: Reports: No Symptoms Pulmonary: Reports: Shortness of Breath Cardiovascular: Reports: No Symptoms Genitourinary: Reports: No Symptoms Musculoskeletal: Reports: No Symptoms Skin: Reports: No Symptoms Neurological: Reports: No Symptoms Psychiatric: Reports: No Symptoms - Patient Data Vitals - Most Recent: Last Vital Signs Temp 95.6 F 03/14/17 07:53 Pulse 75 03/14/17 13:28 Resp 26 H 03/14/17 12:00 BP 88/41 L 03/14/17 12:00 Pulse Ox 97 03/14/17 12:00 Weight - Most Recent: 143 lb 4.807 oz I&O - Last 24 Hours: Intake & Output 03/13/17 03/14/17 03/14/17 22:59 06:59 14:59 Intake Total 329 804 240 Output Total 920 123 150 Balance -591 681 90 Lab Results Last 24 Hours: Laboratory Results - last 24 hr 03/14/17 Range/Units 05:00 PT 38.4 H (9.5-12.0) sec INR 3.41 H (0.80-1.20) Med Orders - Current: Current Medications Acetaminophen (Tylenol) 650 mg PO Q4H PRN PRN Reason: Pain (Mild 1-3)/fever Artificial Tears (Natural Balance Tears) 0 ml EYEBOTH QID [facility] Last Admin: 03/14/17 10:17 Dose: 2 drop Carvedilol (Coreg) 3.125 mg PO BIDMEALS [facility] Last Admin: 03/14/17 08:52 Dose: 3.125 mg Digoxin (Lanoxin) 125 mcg PO DAILY@1300 [facility] Last Admin: 03/14/17 13:28 Dose: 125 mcg Flecainide Acetate (Tambocor) 100 mg PO BID [facility] Last Admin: 03/14/17 08:53 Dose: 100 mg Sodium Chloride (Normal Saline) 1,000 mls @ 30 mls/hr IV ASDIRECTED [facility] Last Admin: 03/14/17 12:09 Dose: 30 mls/hr Furosemide 100 mg/ Sodium (Chloride) 100 mls @ 2 mls/hr IV TITRATE FADY; 2 MG/HR PRN Reason: Protocol Last Admin: 03/14/17 08:55 Dose: 2 mg/hr, 2 mls/hr Sodium Chloride (Normal Saline) 250 mls @ 498 mls/hr IV ASDIRECTED [facility] Last Admin: 03/14/17 05:03 Dose: 498 mls/hr Lisinopril (Prinivil) 2.5 mg PO DAILY PRN PRN Reason: SBP > 100 Last Admin: 03/13/17 14:39 Dose: 2.5 mg Simvastatin (Zocor) 20 mg PO BEDTIME [facility] Last Admin: 03/13/17 20:33 Dose: 20 mg Warfarin Sodium (Coumadin) 5 mg PO SuMoTuThFrSa@1800 [facility] Last Admin: 03/13/17 17:11 Dose: 5 mg Warfarin Sodium (Coumadin) 2.5 mg PO We@1800 [facility] Discontinued Medications Albuterol (Proventil Neb Soln) 2.5 mg NEB ONETIME ONE Stop: 03/13/17 00:22 Last Admin: 03/13/17 00:29 Dose: 2.5 mg Carvedilol (Coreg) 12.5 mg PO BIDMEALS [facility] Last Admin: 03/13/17 08:12 Dose: 12.5 mg Carvedilol (Coreg) 6.25 mg PO BIDMEALS [facility] Last Admin: 03/13/17 16:58 Dose: 6.25 mg Carvedilol (Coreg) 3.125 mg PO BIDMEALS [facility] Carvedilol (Coreg) 3.125 mg PO BIDMEALS [facility] Digoxin (Lanoxin) 250 - 500 mcg IV ONETIME [facility] Last Admin: 03/13/17 03:25 Dose: 250 mcg Furosemide (Lasix) 60 mg IVPUSH ONETIME ONE Stop: 03/12/17 23:53 Last Admin: 03/13/17 00:18 Dose: 60 mg Furosemide 100 mg/ Sodium (Chloride) 100 mls @ 6 mls/hr IV DAILY [facility]ADY PRN Reason: 6 MG/HR Last Admin: 03/13/17 02:52 Dose: 6 mg/hr, 6 mls/hr Furosemide 100 mg/ Sodium (Chloride) 100 mls @ 6 mls/hr IV Q16H [facility] PRN Reason: 6 MG/HR Dobutamine HCl/Dextrose (Dobutamine In D5w 250 Mg/250 Ml) 250 mg in 250 mls @ 1.809 mls/hr IV TITRATE FADY; 0.5 MCG/KG/MIN PRN Reason: Protocol Last Titration: 03/14/17 02:20 Dose: 7 mcg/kg/min, 25.326 mls/hr Norepinephrine Bitartrate 4 mg (/ Dextrose/Water) 250 mls @ 7.5 mls/hr IV TITRATE FADY; 2 MCG/MIN PRN Reason: Protocol Sodium Chloride (Normal Saline) 150 mls @ 300 mls/hr IV .BOLUS ONE Stop: 03/14/17 05:11 Last Admin: 03/14/17 05:40 Dose: 300 mls/hr - Exam General: Alert, Oriented HEENT: Pupils Equal, Pupils Reactive, EOMI, Mucous Membr. Moist/[place] Neck: Supple Lungs: Clear to Auscultation, Normal Respiratory Effort Cardiovascular: Irregular Rhythm GI/Abdominal Exam: Normal Bowel Sounds, Soft, Non-Tender, No Organomegaly, No Distention, No Abnormal Bruit, No Mass, Pelvis Stable Extremities: Normal Inspection, Normal Range of Motion, Non-Tender, No Pedal Edema, Normal Capillary Refill Peripheral Pulses: 1+: Radial (L), Radial (R) Psy/Mental Status: Alert, Normal Affect, Normal Mood - Problem List Review Problem List Initiated/Reviewed/Updated: Yes - My Orders Last 24 Hours: My Active Orders 03/13/17 13:00 Digoxin [Lanoxin] 125 mcg PO DAILY@1300 03/13/17 14:31 Lisinopril [Prinivil] 2.5 mg PO DAILY PRN 03/13/17 21:00 Simvastatin [Zocor] 20 mg PO BEDTIME 03/14/17 04:15 Sodium Chloride 0.9% [Normal Saline] 250 ml IV ASDIRECTED 03/14/17 05:11 Chest 1V Frontal [CR] Routine 03/14/17 09:00 Carvedilol [Coreg] 3.125 mg PO BIDMEALS 03/15/17 05:00 INR,PT,PROTHROMBIN TIME [COAG] DAILY 03/15/17 05:11 Echo Comp wo Cont [US] Routine 03/16/17 05:00 INR,PT,PROTHROMBIN TIME [COAG] DAILY 03/17/17 05:00 INR,PT,PROTHROMBIN TIME [COAG] DAILY 03/17/17 18:00 Warfarin [Coumadin] 2.5 mg PO We@1800 03/18/17 05:00 INR,PT,PROTHROMBIN TIME [COAG] DAILY - Plan Plan:: Assessmen/Plan: #1. Pulmonary Edema with history of CHF Continue lasix IV drip dropped to 2mg/hr. Urine flow was low last night and did not respond to dobutamine as I feel she was dry. Started fluids and urine output as improved. Echocardiogram pending tomorrow. #2. History of HTN: Hypotensive now. Will continue to hold Lisinopril. #3. Atrial Fib. Chronic with tachycardia controlled by Flecainide but recently off. Restarted #4. Hx of Melanoma of the face: Treated and stable. #5. History of Endocarditis: #6. Possible infiltrate right lower lobe. Will watch for pneumonia and treat if evident. Will repeat the CXR Tomorrow morning.
[2017-03-14] MEDS ORDERED: Sodium Chloride 0.9% 1,000 ML IV SCH (14:15)
[2017-03-14] MEDS: Simvastatin 20 MG Tab PO SCH (20:16)
[2017-03-15] MEDS: Hypromellose 0.4% Ophth Soln 15 ML Bottle EYEBOTH SCH ×4 (05:52→20:52)
[2017-03-15] MEDS: Flecainide 50 MG Tab PO SCH ×2 (09:03→20:52)
[2017-03-15] MEDS: Carvedilol 3.125 MG Tab PO SCH ×2 (09:04→18:35)
--- NOTE | 2017-03-15 09:14 | PCM.PN ---
- General Info Date of Service: 03/15/17 Functional Status: Reports: Pain Controlled - Review of Systems General: Reports: Weakness HEENT: Reports: No Symptoms Pulmonary: Reports: Shortness of Breath Cardiovascular: Reports: Dyspnea on Exertion Gastrointestinal: Reports: No Symptoms Genitourinary: Reports: No Symptoms. Denies: Other (cath in place) Musculoskeletal: Reports: Other (generalized weakness) Skin: Reports: No Symptoms Neurological: Reports: No Symptoms Psychiatric: Reports: No Symptoms - Patient Data Vitals - Most Recent: Last Vital Signs Temp 98.1 F 03/15/17 08:31 Pulse 98 03/15/17 08:31 Resp 16 03/15/17 08:31 BP 100/54 L 03/15/17 08:31 Pulse Ox 99 03/15/17 08:31 Weight - Most Recent: 143 lb 8.335 oz I&O - Last 24 Hours: Intake & Output 03/14/17 03/15/17 03/15/17 22:59 06:59 14:59 Intake Total 1158 1261 Output Total 150 550 Balance 1008 711 Lab Results Last 24 Hours: Laboratory Results - last 24 hr 03/15/17 03/15/17 03/15/17 Range/Units 04:30 04:30 04:30 WBC 5.9 (4.5-11.0) K/uL RBC 3.40 (3.30-5.50) M/uL Hgb 10.9 L (12.0-15.0) g/dL Hct 32.5 L (36.0-48.0) % MCV 96 (80-98) fL MCH 32 H (27-31) pg MCHC 34 (32-36) % Plt Count 308 (150-400) K/uL Neut % (Auto) 66 (36-66) % Lymph % (Auto) 20 L (24-44) % [place] % (Auto) 13 H (2-6) % Eos % (Auto) 1 L (2-4) % Baso % (Auto) 0 (0-1) % PT 36.8 H (9.5-12.0) sec INR 3.27 H (0.80-1.20) Sodium 130 L (140-148) mmol/L Potassium 3.6 (3.6-5.2) mmol/L Chloride 96 L (100-108) mmol/L Carbon Dioxide 27 (21-32) mmol/L Anion Gap 10.6 (5.0-14.0) mmol/L BUN 33 H D (7-18) mg/dL Creatinine 1.3 H (0.6-1.0) mg/dL Est Cr Clr Drug Dosing 27.27 mL/min Estimated GFR (MDRD) 40 L (>60) Glucose 92 (74-106) mg/dL Calcium 7.8 L (8.5-10.1) mg/dL Med Orders - Current: Current Medications Acetaminophen (Tylenol) 650 mg PO Q4H PRN PRN Reason: Pain (Mild 1-3)/fever Artificial Tears (Natural Balance Tears) 0 ml EYEBOTH QID [facility] Last Admin: 03/15/17 05:52 Dose: 2 drop Carvedilol (Coreg) 3.125 mg PO BIDMEALS [facility] Last Admin: 03/15/17 09:04 Dose: 3.125 mg Digoxin (Lanoxin) 125 mcg PO DAILY@1300 [facility] Last Admin: 03/14/17 13:28 Dose: 125 mcg Flecainide Acetate (Tambocor) 100 mg PO BID [facility] Last Admin: 03/15/17 09:03 Dose: 100 mg Sodium Chloride (Normal Saline) 1,000 mls @ 30 mls/hr IV ASDIRECTED [facility] Last Admin: 03/14/17 12:09 Dose: 30 mls/hr Sodium Chloride (Normal Saline) 250 mls @ 498 [facility] [place] Last Admin: 03/14/17 05:03 Dose: 498 mls/hr Sodium Chloride (Normal Saline) 1,000 mls [facility] Last Admin: 03/15/17 01:19 Dose: 75 mls/hr Simvastatin (Zocor) 20 mg PO BEDTIME [facility] Last Admin: 03/14/17 20:16 Dose: 20 mg Warfarin Sodium (Coumadin) 5 mg PO SuMoTuThFrSa@1800 [facility] Last Admin: 03/13/17 17:11 Dose: 5 mg Warfarin Sodium (Coumadin) 2.5 mg PO We@1800 [facility] Discontinued Medications Albuterol (Proventil Neb Soln) 2.5 mg NEB ONETIME ONE Stop: 03/13/17 00:22 Last Admin: 03/13/17 00:29 Dose: 2.5 mg Carvedilol (Coreg) 12.5 mg PO BIDMEALS [facility] Last Admin: 03/13/17 08:12 Dose: 12.5 mg Carvedilol (Coreg) 6.25 mg PO BIDMEALS [facility] Last Admin: 03/13/17 16:58 Dose: 6.25 mg Carvedilol (Coreg) 3.125 mg PO BIDMEALS [facility] Last Admin: 03/14/17 15:27 Dose: Not Given Carvedilol (Coreg) 3.125 mg PO BIDMEALS [facility] Digoxin (Lanoxin) 250 - 500 mcg IV ONETIME [facility] Last Admin: 03/13/17 03:25 Dose: 250 mcg Furosemide (Lasix) 60 mg IVPUSH ONETIME ONE Stop: 03/12/17 23:53 Last Admin: 03/13/17 00:18 Dose: 60 mg Furosemide 100 mg/ Sodium (Chloride) 100 mls @ 6 mls/hr IV DAILY [facility] PRN Reason: 6 MG/HR Last Admin: 03/13/17 02:52 Dose: 6 mg/hr, 6 mls/hr Furosemide 100 mg/ Sodium (Chloride) 100 mls @ 6 mls/hr IV Q16H [facility] PRN Reason: 6 MG/HR Furosemide 100 mg/ Sodium (Chloride) 100 mls @ 2 mls/hr IV TITRATE FADY; 2 MG/HR PRN Reason: Protocol Last Admin: 03/14/17 08:55 Dose: 2 mg/hr, 2 mls/hr Dobutamine HCl/Dextrose (Dobutamine In D5w 250 Mg/250 Ml) 250 mg in 250 mls @ 1.809 mls/hr IV TITRATE FADY; 0.5 MCG/KG/MIN PRN Reason: Protocol Last Titration: 03/14/17 02:20 Dose: 7 mcg/kg/min, 25.326 mls/hr Norepinephrine Bitartrate 4 mg (/ Dextrose/Water) 250 mls @ 7.5 mls/hr IV TITRATE FADY; 2 MCG/MIN PRN Reason: Protocol Sodium Chloride (Normal Saline) 150 mls @ 300 mls/hr IV .BOLUS ONE Stop: 03/14/17 05:11 Last Admin: 03/14/17 05:40 Dose: 300 mls/hr Lisinopril (Prinivil) 2.5 mg PO DAILY PRN PRN Reason: SBP > 100 Last Admin: 03/13/17 14:39 Dose: 2.5 mg - Exam General: Alert, Oriented HEENT: Pupils Equal, Pupils Reactive, EOMI, Mucous Membr. Moist/[place] Neck: Supple - Problem List Review Problem List Initiated/Reviewed/Updated: Yes - My Orders Last 24 Hours: My Active Orders 03/14/17 09:00 Carvedilol [Coreg] 3.125 mg PO BIDMEALS 03/14/17 14:15 Sodium Chloride 0.9% [Normal Saline] 1,000 ml IV ASDIRECTED 03/15/17 05:11 Echo Comp wo Cont [US] Routine 03/16/17 05:00 INR,PT,PROTHROMBIN TIME [COAG] DAILY 03/17/17 05:00 INR,PT,PROTHROMBIN TIME [COAG] DAILY 03/17/17 18:00 Warfarin [Coumadin] 2.5 mg PO We@1800 03/18/17 05:00 INR,PT,PROTHROMBIN TIME [COAG] DAILY - Plan Plan:: Assessmen/Plan: #1. Pulmonary Edema with history of CHF Bp still below 100 systolic. Will give 0.1mg fludrocortisone now. #2. History of HTN: Hypotensive now. Will continue to hold Lisinopril. Give Florinef as above. #3. Atrial Fib. Chronic with tachycardia controlled by Flecainide but recently off. Restarted #4. Hx of Melanoma of the face: Treated and stable. #5. History of Endocarditis: #6. No evidence of pneumonia as per x-ray report which matches clinical impression.
--- NOTE | 2017-03-15 10:40 | CR ---
Mild cardiomegaly. There is less of an interstitial process on this examination. Improved aeration wi thin the lungs. Mild interstitial edema remaining.
--- NOTE | 2017-03-15 10:40 | CR ---
Mild cardiomegaly. Diffuse linear interstitial process most suggestive of CHF. Trace right pleural ef fusion.
[2017-03-15] MEDS: Digoxin 125 MCG Tab PO SCH (13:22)
[2017-03-15] MEDS ORDERED: Fludrocortisone 0.1 MG Tab PO ONE (18:22)
[2017-03-15] MEDS: Warfarin 5 MG Tab PO SCH (18:35)
[2017-03-15] MEDS: Simvastatin 20 MG Tab PO SCH (20:52)
[2017-03-16] MEDS: Hypromellose 0.4% Ophth Soln 15 ML Bottle EYEBOTH SCH ×5 (00:16→21:00)
[2017-03-16] MEDS: Potassium Chloride 20 MEQ Tab.ER PO SCH (08:29)
[2017-03-16] MEDS: Flecainide 50 MG Tab PO SCH ×2 (09:38→20:52)
[2017-03-16] MEDS: Carvedilol 3.125 MG Tab PO SCH ×2 (09:39→16:48)
[2017-03-16] MEDS: Furosemide 20 MG Tab PO SCH (10:43)
[2017-03-16] MEDS: Digoxin 125 MCG Tab PO SCH (13:53)
[2017-03-16] MEDS: Warfarin 5 MG Tab PO SCH (17:48)
--- NOTE | 2017-03-16 18:47 | PCM.PN ---
- General Info Date of Service: 03/16/17 Functional Status: Reports: Pain Controlled - Review of Systems General: Reports: Weakness HEENT: Reports: No Symptoms Pulmonary: Reports: Shortness of Breath, Cough, Sputum Cardiovascular: Reports: No Symptoms Gastrointestinal: Reports: No Symptoms Genitourinary: Reports: No Symptoms Musculoskeletal: Reports: No Symptoms Skin: Reports: No Symptoms Neurological: Reports: No Symptoms Psychiatric: Reports: No Symptoms - Patient Data Vitals - Most Recent: Last Vital Signs Temp 97.3 F 03/16/17 18:31 Pulse 79 03/16/17 18:31 Resp 22 H 03/16/17 18:31 BP 113/43 L 03/16/17 18:31 Pulse Ox 100 03/16/17 18:31 Weight - Most Recent: 136 lb 1.6 oz I&O - Last 24 Hours: Intake & Output 03/16/17 03/16/17 03/16/17 06:59 14:59 22:59 Intake Total 480 400 500 Output Total 400 825 Balance 80 400 -325 Lab Results Last 24 Hours: Laboratory Results - last 24 hr 03/16/17 03/16/17 Range/Units 04:40 04:40 PT 34.1 H (9.5-12.0) sec INR 3.04 H (0.80-1.20) Sodium 129 L (140-148) mmol/L Potassium 3.7 (3.6-5.2) mmol/L Chloride 95 L (100-108) mmol/L Carbon Dioxide 27 (21-32) mmol/L Anion Gap 10.7 (5.0-14.0) mmol/L BUN 34 H (7-18) mg/dL Creatinine 1.1 H (0.6-1.0) mg/dL Est Cr Clr Drug Dosing 32.23 mL/min Estimated GFR (MDRD) 49 L (>60) Glucose 89 (74-106) mg/dL Calcium 8.3 L (8.5-10.1) mg/dL Med Orders - Current: Current Medications Acetaminophen (Tylenol) 650 mg PO Q4H PRN PRN Reason: Pain (Mild 1-3)/fever Last Admin: 03/15/17 15:40 Dose: 650 mg Artificial Tears (Natural Balance Tears) 0 ml EYEBOTH QID [facility] Last Admin: 03/16/17 16:47 Dose: 1 drop Carvedilol (Coreg) 3.125 mg PO BIDMEALS [facility] Last Admin: 03/16/17 16:48 Dose: 3.125 mg Digoxin (Lanoxin) 125 mcg PO DAILY@1300 [facility] Last Admin: 03/16/17 13:53 Dose: 125 mcg Flecainide Acetate (Tambocor) 100 mg PO BID [facility] Last Admin: 03/16/17 09:38 Dose: 100 mg Furosemide (Lasix) 20 mg PO DAILY [facility] Last Admin: 03/16/17 10:43 Dose: 20 mg Potassium Chloride (Klor-Con M20) 20 meq PO DAILY@0800 [facility] Last Admin: 03/16/17 08:29 Dose: 20 meq Simvastatin (Zocor) 20 mg PO BEDTIME [facility] Last Admin: 03/15/17 20:52 Dose: 20 mg Warfarin Sodium (Coumadin) 5 mg PO SuMoTuThFrSa@1800 [facility] Last Admin: 03/16/17 17:48 Dose: 5 mg Warfarin Sodium (Coumadin) 2.5 mg PO We@1800 [facility] Discontinued Medications Albuterol (Proventil Neb Soln) 2.5 mg NEB ONETIME ONE Stop: 03/13/17 00:22 Last Admin: 03/13/17 00:29 Dose: 2.5 mg Carvedilol (Coreg) 12.5 mg PO BIDMEALS [facility] Last Admin: 03/13/17 08:12 Dose: 12.5 mg Carvedilol (Coreg) 6.25 mg PO BIDMEALS [facility] Last Admin: 03/13/17 16:58 Dose: 6.25 mg Carvedilol (Coreg) 3.125 mg PO BIDMEALS [facility] Last Admin: 03/14/17 15:27 Dose: Not Given Carvedilol (Coreg) 3.125 mg PO BIDMEALS [facility] Digoxin (Lanoxin) 250 - 500 mcg IV ONETIME [facility] Last Admin: 03/13/17 03:25 Dose: 250 mcg Fludrocortisone Acetate (Florinef) 0.1 mg PO ONETIME ONE Stop: 03/15/17 18:23 Last Admin: 03/15/17 20:03 Dose: 0.1 mg Furosemide (Lasix) 60 mg IVPUSH ONETIME ONE Stop: 03/12/17 23:53 Last Admin: 03/13/17 00:18 Dose: 60 mg Sodium Chloride (Normal Saline) 1,000 mls @ 30 mls/hr IV ASDIRECTED [facility] Last Admin: 03/14/17 12:09 Dose: 30 mls/hr Furosemide 100 mg/ Sodium (Chloride) 100 mls @ 6 mls/hr IV DAILY [facility] PRN Reason: 6 MG/HR Last Admin: 03/13/17 02:52 Dose: 6 mg/hr, 6 mls/hr Furosemide 100 mg/ Sodium (Chloride) 100 mls @ 6 mls/hr IV Q16H [facility] PRN Reason: 6 MG/HR Furosemide 100 mg/ Sodium (Chloride) 100 mls @ 2 mls/hr IV TITRATE FADY; 2 MG/HR PRN Reason: Protocol Last Admin: 03/14/17 08:55 Dose: 2 mg/hr, 2 mls/hr Dobutamine HCl/Dextrose (Dobutamine In D5w 250 Mg/250 Ml) 250 mg in 250 mls @ 1.809 mls/hr IV TITRATE FADY; 0.5 MCG/KG/MIN PRN Reason: Protocol Last Titration: 03/14/17 02:20 Dose: 7 mcg/kg/min, 25.326 mls/hr Sodium Chloride (Normal Saline) 250 mls @ 498 mls/hr IV ASDIRECTED [facility] Last Admin: 03/14/17 05:03 Dose: 498 mls/hr Norepinephrine Bitartrate 4 mg (/ Dextrose/Water) 250 mls @ 7.5 mls/hr IV TITRATE FADY; 2 MCG/MIN PRN Reason: Protocol Sodium Chloride (Normal Saline) 150 mls @ 300 mls/hr IV .BOLUS ONE Stop: 03/14/17 05:11 Last Admin: 03/14/17 05:40 Dose: 300 mls/hr Sodium Chloride (Normal Saline) 1,000 mls @ 75 mls/hr IV ASDIRECTED [facility] Last Admin: 03/15/17 01:19 Dose: 75 mls/hr Lisinopril (Prinivil) 2.5 mg PO DAILY PRN PRN Reason: SBP > 100 Last Admin: 03/13/17 14:39 Dose: 2.5 mg - Exam General: Alert, Oriented HEENT: Pupils Equal, Pupils Reactive, EOMI, Mucous Membr. Moist/[place] Neck: Supple Lungs: Clear to Auscultation Cardiovascular: Regular Rate, Regular Rhythm Extremities: Leg Pain Peripheral Pulses: 1+: Radial (L), Radial (R) Skin: Warm, Dry, Intact Psy/Mental Status: Alert, Normal Affect, Normal Mood - Problem List Review Problem List Initiated/Reviewed/Updated: Yes - My Orders Last 24 Hours: My Active Orders 03/16/17 08:00 Potassium Chloride [Klor-Con M20] 20 meq PO DAILY@0800 03/16/17 09:30 Transfer Patient (Change bed) [ADT] Routine 03/16/17 10:30 Furosemide [Lasix] 20 mg PO DAILY 03/16/17 18:39 RT PFT Complete [RC] Click to Edit 03/17/17 05:00 INR,PT,PROTHROMBIN TIME [COAG] DAILY 03/17/17 18:00 Warfarin [Coumadin] 2.5 mg PO We@1800 03/18/17 05:00 INR,PT,PROTHROMBIN TIME [COAG] DAILY - Plan Plan:: Assessmen/Plan: #1. Pulmonary Edema with history of CHF Stable presently. #2. History of HTN: Stable. Will continue to hold Lisinopril. #3. Atrial Fib. Chronic with tachycardia controlled by Flecainide. #4. Hx of Melanoma of the face: Treated and stable. #5. History of Endocarditis: #6. No evidence of pneumonia as per x-ray report which matches clinical impression. #7. Will check lung functions in the morning.
[2017-03-16] MEDS: Simvastatin 20 MG Tab PO SCH (20:52)
[2017-03-17] MEDS: Hypromellose 0.4% Ophth Soln 15 ML Bottle EYEBOTH SCH ×4 (07:36→21:08)
[2017-03-17] MEDS ORDERED: Albuterol 0.083% 2.5 MG/3 ML Neb Soln NEB ONE (08:13)
[2017-03-17] MEDS ORDERED: Albuterol 0.083% 2.5 MG/3 ML Neb Soln ONE (08:13)
[2017-03-17] MEDS: Potassium Chloride 20 MEQ Tab.ER PO SCH (09:30)
[2017-03-17] MEDS: Furosemide 20 MG Tab PO SCH (09:31)
[2017-03-17] MEDS: Flecainide 50 MG Tab PO SCH ×2 (09:31→20:57)
[2017-03-17] MEDS: Carvedilol 3.125 MG Tab PO SCH ×2 (09:33→17:04)
[2017-03-17] MEDS ORDERED: Albuterol/Ipratropium 3.0-0.5 MG/3 ML Neb Soln NEB PRN (12:01)
[2017-03-17] MEDS: Digoxin 125 MCG Tab PO SCH (13:29)
[2017-03-17] MEDS: Albuterol/Ipratropium 3.0-0.5 MG/3 ML Neb Soln NEB SCH ×2 (14:37→20:56)
[2017-03-17] MEDS ORDERED: Pneumococcal Polyvalent-23 Vaccine 0.5 ML SDV IM ONE (16:00)
[2017-03-17] MEDS ORDERED: Warfarin 2.5 MG Tab PO SCH (18:00)
--- NOTE | 2017-03-17 20:49 | PCM.PN ---
- General Info Date of Service: 03/17/17 Subjective Update: She is feeling much better with the respiratory treatments. She also has more energy. - Review of Systems General: Reports: Weakness, Fatigue HEENT: Reports: No Symptoms Pulmonary: Reports: Shortness of Breath Cardiovascular: Reports: Dyspnea on Exertion Gastrointestinal: Reports: No Symptoms Genitourinary: Reports: No Symptoms Musculoskeletal: Reports: No Symptoms Skin: Reports: No Symptoms Neurological: Reports: No Symptoms Psychiatric: Reports: No Symptoms - Patient Data Vitals - Most Recent: Last Vital Signs Temp 96.7 F 03/17/17 19:00 Pulse 75 03/17/17 19:00 Resp 18 03/17/17 19:00 BP 116/71 03/17/17 19:00 Pulse Ox 100 03/17/17 19:00 Weight - Most Recent: 136 lb 6.4 oz I&O - Last 24 Hours: Intake & Output 03/17/17 03/17/17 03/17/17 06:59 14:59 22:59 Intake Total 720 640 Output Total 600 500 450 Balance -600 220 190 Lab Results Last 24 Hours: Laboratory Results - last 24 hr 03/17/17 Range/Units 05:30 PT 41.4 H (9.5-12.0) sec INR 3.67 H (0.80-1.20) Med Orders - Current: Current Medications Acetaminophen (Tylenol) 650 mg PO Q4H PRN PRN Reason: Pain (Mild 1-3)/fever Last Admin: 03/15/17 15:40 Dose: 650 mg Albuterol/Ipratropium (Duoneb 3.0-0.5 Mg/3 Ml) 3 ml NEB QIDRT [facility] Last Admin: 03/17/17 14:37 Dose: 3 ml Albuterol/Ipratropium (Duoneb 3.0-0.5 Mg/3 Ml) 3 ml NEB QIDRT PRN PRN Reason: Shortness of Breath Artificial Tears (Natural Balance Tears) 0 ml EYEBOTH QID [facility] Last Admin: 03/17/17 16:55 Dose: 1 drop Budesonide (Pulmicort) 0.5 mg NEB BIDRT [facility] Carvedilol (Coreg) 3.125 mg PO BIDMEALS [facility] Last Admin: 03/17/17 17:04 Dose: 3.125 mg Digoxin (Lanoxin) 125 mcg PO DAILY@1300 [facility] Last Admin: 03/17/17 13:29 Dose: 125 mcg Flecainide Acetate (Tambocor) 100 mg PO BID [facility] Last Admin: 03/17/17 09:31 Dose: 100 mg Furosemide (Lasix) 20 mg PO DAILY [facility] Last Admin: 03/17/17 09:31 Dose: 20 mg Potassium Chloride (Klor-Con M20) 20 meq PO DAILY@0800 [facility] Last Admin: 03/17/17 09:30 Dose: 20 meq Simvastatin (Zocor) 20 mg PO BEDTIME [facility] Last Admin: 03/16/17 20:52 Dose: 20 mg Warfarin Sodium (Coumadin) 5 mg PO SuMoTuThFrSa@1800 [facility] Last Admin: 03/16/17 17:48 Dose: 5 mg Warfarin Sodium (Coumadin) 2.5 mg PO We@1800 [facility] Discontinued Medications Albuterol (Proventil Neb Soln) 2.5 mg NEB ONETIME ONE Stop: 03/13/17 00:22 Last Admin: 03/13/17 00:29 Dose: 2.5 mg Albuterol (Proventil Neb Soln) Confirm Administered Dose 2.5 mg .ROUTE .STK-MED ONE Stop: 03/17/17 08:14 Last Admin: 03/17/17 08:17 Dose: 2.5 mg Carvedilol (Coreg) 12.5 mg PO BIDMEALS [facility] Last Admin: 03/13/17 08:12 Dose: 12.5 mg Carvedilol (Coreg) 6.25 mg PO BIDMEALS [facility] Last Admin: 03/13/17 16:58 Dose: 6.25 mg Carvedilol (Coreg) 3.125 mg PO BIDMEALS [facility] Last Admin: 03/14/17 15:27 Dose: Not Given Carvedilol (Coreg) 3.125 mg PO BIDMEALS [facility] Digoxin (Lanoxin) 250 - 500 mcg IV ONETIME [facility] Last Admin: 03/13/17 03:25 Dose: 250 mcg Fludrocortisone Acetate (Florinef) 0.1 mg PO ONETIME ONE Stop: 03/15/17 18:23 Last Admin: 03/15/17 20:03 Dose: 0.1 mg Furosemide (Lasix) 60 mg IVPUSH ONETIME ONE Stop: 03/12/17 23:53 Last Admin: 03/13/17 00:18 Dose: 60 mg Sodium Chloride (Normal Saline) 1,000 mls @ 30 mls/hr IV ASDIRECTED [facility] Last Admin: 03/14/17 12:09 Dose: 30 mls/hr Furosemide 100 mg/ Sodium (Chloride) 100 mls @ 6 mls/hr IV DAILY [facility] PRN Reason: 6 MG/HR Last Admin: 03/13/17 02:52 Dose: 6 mg/hr, 6 mls/hr Furosemide 100 mg/ Sodium (Chloride) 100 mls @ 6 mls/hr IV Q16H [facility] PRN Reason: 6 MG/HR Furosemide 100 mg/ Sodium (Chloride) 100 mls @ 2 mls/hr IV TITRATE [facility]; 2 MG/HR PRN Reason: Protocol Last Admin: 03/14/17 08:55 Dose: 2 mg/hr, 2 mls/hr Dobutamine HCl/Dextrose (Dobutamine In D5w 250 Mg/250 Ml) 250 mg in 250 mls @ 1.809 mls/hr IV TITRATE [facility]; 0.5 MCG/KG/MIN PRN Reason: Protocol Last Titration: 03/14/17 02:20 Dose: 7 mcg/kg/min, 25.326 mls/hr Sodium Chloride (Normal Saline) 250 mls @ 498 mls/hr IV ASDIRECTED [facility] Last Admin: 03/14/17 05:03 Dose: 498 mls/hr Norepinephrine Bitartrate 4 mg (/ Dextrose/Water) 250 mls @ 7.5 mls/hr IV TITRATE [facility]; 2 MCG/MIN PRN Reason: Protocol Sodium Chloride (Normal Saline) 150 mls @ 300 mls/hr IV .BOLUS ONE Stop: 03/14/17 05:11 Last Admin: 03/14/17 05:40 Dose: 300 mls/hr Sodium Chloride (Normal Saline) 1,000 mls @ 75 mls/hr IV ASDIRECTED [facility] Last Admin: 03/15/17 01:19 Dose: 75 mls/hr Lisinopril (Prinivil) 2.5 mg PO DAILY PRN PRN Reason: SBP > 100 Last Admin: 03/13/17 14:39 Dose: 2.5 mg Pneumococcal Polyvalent Vaccine (Pneumovax 23) 0.5 ml IM .ONCE ONE Stop: 03/17/17 16:01 Last Admin: 03/17/17 16:59 Dose: 0.5 ml - Exam General: Alert HEENT: Pupils Equal, Pupils Reactive, EOMI, Mucous Membr. Moist/[place] Neck: Supple Lungs: Clear to Auscultation Cardiovascular: Regular Rate, Regular Rhythm GI/Abdominal Exam: Normal Bowel Sounds, Soft, Non-Tender, No Organomegaly, No Distention, No Abnormal Bruit, No Mass, Pelvis Stable Back Exam: Normal Inspection, Full Range of Motion Extremities: Other (+1 edema) Peripheral Pulses: 1+: Radial (L), Radial (R) Skin: Warm Psy/Mental Status: Alert, Normal Affect, Normal Mood - Problem List Review Problem List Initiated/Reviewed/Updated: Yes - My Orders Last 24 Hours: My Active Orders 03/17/17 12:01 Albuterol/Ipratropium [DuoNeb 3.0-0.5 MG/3 ML] 3 ml NEB QIDRT PRN 03/17/17 15:00 Albuterol/Ipratropium [DuoNeb 3.0-0.5 MG/3 ML] 3 ml NEB QIDRT 03/17/17 18:00 Warfarin [Coumadin] 2.5 mg PO We@1800 03/17/17 21:00 Budesonide [Pulmicort] 0.5 mg NEB BIDRT 03/18/17 05:00 INR,PT,PROTHROMBIN TIME [COAG] DAILY - Plan Plan:: Assessment/Plan: #1. Pulmonary Edema with history of CHF Stable presently. #2. History of HTN: Stable. Will continue to hold Lisinopril. #3. Atrial Fib. Chronic with tachycardia controlled by Flecainide. #4. Hx of Melanoma of the face: Treated and stable. #5. History of Endocarditis: #6. No evidence of pneumonia as per x-ray report which matches clinical impression. #7. Will check lung functions in the morning. #8. COPD: She had a PFT this morning which showed good response to bronchodilators. These were given today and she feels much better. Plan to discharge to the [place] tomorrow if whe continues to improve.
[2017-03-17] MEDS: Budesonide 0.5 MG/2 ML Neb Susp NEB SCH (20:56)
[2017-03-17] MEDS: Simvastatin 20 MG Tab PO SCH (20:56)
[2017-03-18] MEDS: Albuterol/Ipratropium 3.0-0.5 MG/3 ML Neb Soln NEB SCH ×2 (07:27→10:52)
[2017-03-18] MEDS: Budesonide 0.5 MG/2 ML Neb Susp NEB SCH (07:27)
[2017-03-18 07:36] VITALS: BP 111/51
[2017-03-18] MEDS: Hypromellose 0.4% Ophth Soln 15 ML Bottle EYEBOTH SCH (07:46)
[2017-03-18] MEDS: Carvedilol 3.125 MG Tab PO SCH (07:47)
[2017-03-18] MEDS: Potassium Chloride 20 MEQ Tab.ER PO SCH (07:47)
[2017-03-18] MEDS: Furosemide 20 MG Tab PO SCH (08:03)
[2017-03-18] MEDS: Flecainide 50 MG Tab PO SCH (08:04)
--- NOTE | 2017-03-18 09:00 | PCM.PN ---
- General Info Date of Service: 03/18/17 Admission Dx/Problem (Free Text): Feeling better and breathing better. Functional Status: Reports: Pain Controlled - Review of Systems General: Reports: No Symptoms HEENT: Reports: No Symptoms Pulmonary: Reports: No Symptoms Cardiovascular: Reports: Dyspnea on Exertion Gastrointestinal: Reports: No Symptoms Genitourinary: Reports: No Symptoms Musculoskeletal: Reports: No Symptoms Skin: Reports: No Symptoms Neurological: Reports: No Symptoms Psychiatric: Reports: No Symptoms - Patient Data Vitals - Most Recent: Last Vital Signs Temp 98.8 F 03/18/17 07:24 Pulse 92 03/18/17 07:47 Resp 18 03/18/17 07:24 BP 111/51 L 03/18/17 07:47 Pulse Ox 97 03/18/17 07:24 Weight - Most Recent: 140 lb 1.6 oz I&O - Last 24 Hours: Intake & Output 03/17/17 03/18/17 03/18/17 22:59 06:59 14:59 Intake Total 640 480 480 Output Total 650 400 300 Balance -10 80 180 Lab Results Last 24 Hours: Laboratory Results - last 24 hr 03/18/17 Range/Units 05:00 PT 34.4 H (9.5-12.0) sec INR 3.07 H (0.80-1.20) Med Orders - Current: Current Medications Acetaminophen (Tylenol) 650 mg PO Q4H PRN PRN Reason: Pain (Mild 1-3)/fever Last Admin: 03/15/17 15:40 Dose: 650 mg Albuterol/Ipratropium (Duoneb 3.0-0.5 Mg/3 Ml) 3 ml NEB QIDRT [facility] Last Admin: 03/18/17 07:27 Dose: 3 ml Albuterol/Ipratropium (Duoneb 3.0-0.5 Mg/3 Ml) 3 ml NEB QIDRT PRN PRN Reason: Shortness of Breath Artificial Tears (Natural Balance Tears) 0 ml EYEBOTH QID [facility] Last Admin: 03/18/17 07:46 Dose: 1 drop Budesonide (Pulmicort) 0.5 mg NEB BIDRT [facility] Last Admin: 03/18/17 07:27 Dose: 0.5 mg Carvedilol (Coreg) 3.125 mg PO BIDMEALS [facility] Last Admin: 03/18/17 07:47 Dose: 3.125 mg Digoxin (Lanoxin) 125 mcg PO DAILY@1300 [facility] Last Admin: 03/17/17 13:29 Dose: 125 mcg Flecainide Acetate (Tambocor) 100 mg PO BID [facility] Last Admin: 03/18/17 08:04 Dose: 100 mg Furosemide (Lasix) 20 mg PO DAILY [facility] Last Admin: 03/18/17 08:03 Dose: 20 mg Potassium Chloride (Klor-Con M20) 20 meq PO DAILY@0800 [facility] Last Admin: 03/18/17 07:47 Dose: 20 meq Simvastatin (Zocor) 20 mg PO BEDTIME [facility] Last Admin: 03/17/17 20:56 Dose: 20 mg Warfarin Sodium (Coumadin) 5 mg PO SuMoTuThFrSa@1800 [facility] Last Admin: 03/16/17 17:48 Dose: 5 mg Warfarin Sodium (Coumadin) 2.5 mg PO We@1800 [facility] Discontinued Medications Albuterol (Proventil Neb Soln) 2.5 mg NEB ONETIME ONE Stop: 03/13/17 00:22 Last Admin: 03/13/17 00:29 Dose: 2.5 mg Albuterol (Proventil Neb Soln) Confirm Administered Dose 2.5 mg .ROUTE .STK-MED ONE Stop: 03/17/17 08:14 Last Admin: 03/17/17 08:17 Dose: 2.5 mg Albuterol (Proventil Neb Soln) 2.5 mg NEB ONETIME ONE Stop: 03/17/17 08:14 Carvedilol (Coreg) 12.5 mg PO BIDMEALS [facility] Last Admin: 03/13/17 08:12 Dose: 12.5 mg Carvedilol (Coreg) 6.25 mg PO BIDMEALS [facility] Last Admin: 03/13/17 16:58 Dose: 6.25 mg Carvedilol (Coreg) 3.125 mg PO BIDMEALS [facility] Last Admin: 03/14/17 15:27 Dose: Not Given Carvedilol (Coreg) 3.125 mg PO BIDMEALS [facility] Digoxin (Lanoxin) 250 - 500 mcg IV ONETIME [facility] Last Admin: 03/13/17 03:25 Dose: 250 mcg Fludrocortisone Acetate (Florinef) 0.1 mg PO ONETIME ONE Stop: 03/15/17 18:23 Last Admin: 03/15/17 20:03 Dose: 0.1 mg Furosemide (Lasix) 60 mg IVPUSH ONETIME ONE Stop: 03/12/17 23:53 Last Admin: 03/13/17 00:18 Dose: 60 mg Sodium Chloride (Normal Saline) 1,000 mls @ 30 mls/hr IV ASDIRECTED [facility] Last Admin: 03/14/17 12:09 Dose: 30 mls/hr Furosemide 100 mg/ Sodium (Chloride) 100 mls @ 6 mls/hr IV DAILY [facility] PRN Reason: 6 MG/HR Last Admin: 03/13/17 02:52 Dose: 6 mg/hr, 6 mls/hr Furosemide 100 mg/ Sodium (Chloride) 100 mls @ 6 mls/hr IV Q16H [facility] PRN Reason: 6 MG/HR Furosemide 100 mg/ Sodium (Chloride) 100 mls @ 2 mls/hr IV TITRATE [facility]; 2 MG/HR PRN Reason: Protocol Last Admin: 03/14/17 08:55 Dose: 2 mg/hr, 2 mls/hr Dobutamine HCl/Dextrose (Dobutamine In D5w 250 Mg/250 Ml) 250 mg in 250 mls @ 1.809 mls/hr IV TITRATE [facility]; 0.5 MCG/KG/MIN PRN Reason: Protocol Last Titration: 03/14/17 02:20 Dose: 7 mcg/kg/min, 25.326 mls/hr Sodium Chloride (Normal Saline) 250 mls @ 498 mls/hr IV ASDIRECTED [facility] Last Admin: 03/14/17 05:03 Dose: 498 mls/hr Norepinephrine Bitartrate 4 mg (/ Dextrose/Water) 250 mls @ 7.5 mls/hr IV TITRATE [facility]; 2 MCG/MIN PRN Reason: Protocol Sodium Chloride (Normal Saline) 150 mls @ 300 mls/hr IV .BOLUS ONE Stop: 03/14/17 05:11 Last Admin: 03/14/17 05:40 Dose: 300 mls/hr Sodium Chloride (Normal Saline) 1,000 mls @ 75 mls/hr IV ASDIRECTED [facility] Last Admin: 03/15/17 01:19 Dose: 75 mls/hr Lisinopril (Prinivil) 2.5 mg PO DAILY PRN PRN Reason: SBP > 100 Last Admin: 03/13/17 14:39 Dose: 2.5 mg Pneumococcal Polyvalent Vaccine (Pneumovax 23) 0.5 ml IM .ONCE ONE Stop: 03/17/17 16:01 Last Admin: 03/17/17 16:59 Dose: 0.5 ml - Exam General: Alert, Oriented HEENT: Pupils Equal, Pupils Reactive, EOMI, Mucous Membr. Moist/[place] Neck: Supple Lungs: Clear to Auscultation, Normal Respiratory Effort Cardiovascular: Regular Rate, Regular Rhythm GI/Abdominal Exam: Normal Bowel Sounds, Soft, Non-Tender, No Organomegaly, No Distention, No Abnormal Bruit, No Mass, Pelvis Stable Extremities: Normal Inspection, Normal Range of Motion, Non-Tender, No Pedal Edema, Normal Capillary Refill Peripheral Pulses: 1+: Radial (L), Radial (R) Skin: Warm, Dry, Intact Psy/Mental Status: Alert, Normal Affect, Normal Mood - Problem List Review Problem List Initiated/Reviewed/Updated: Yes - My Orders Last 24 Hours: My Active Orders 03/17/17 12:01 Albuterol/Ipratropium [DuoNeb 3.0-0.5 MG/3 ML] 3 ml NEB QIDRT PRN 03/17/17 15:00 Albuterol/Ipratropium [DuoNeb 3.0-0.5 MG/3 ML] 3 ml NEB QIDRT 03/17/17 18:00 Warfarin [Coumadin] 2.5 mg PO We@1800 03/17/17 21:00 Budesonide [Pulmicort] 0.5 mg NEB BIDRT 03/18/17 08:20 RT Aerosol Therapy [RC] ASDIRECTED - Plan Plan:: Assessment/Plan: #1. Pulmonary Edema with history of CHF Stable presently. #2. History of HTN: Stable. Will continue to hold Lisinopril. #3. Atrial Fib. Chronic with tachycardia controlled by Flecainide. #4. Hx of Melanoma of the face: Treated and stable. #5. History of Endocarditis: #6. No evidence of pneumonia as per x-ray report which matches clinical impression. #7. COPD: She had a PFT this morning which showed good response to bronchodilators. These were given today and she feels much better. Plan to discharge to the [place] today
--- NOTE | 2017-03-18 09:06 | PCM.DCSUM1 ---
Discharge Summary - Hospital Course Brief History: Admitted from the [facility] in Pulmonary edema - Discharge Data Discharge Date: 03/18/17 Discharge Disposition: DC/Tfer to [facility] 65 Condition: Fair - Patient Summary/Data Consults: Consultations 03/15/17 09:55 PT Evaluation and Treatment [CONS] Routine Please Evaluate and Treat. PT Reason for Consult: Strengthening This query below is only for informational purposes and is not editable. Admission Diagnosis/Problem: CHF, Congestive heart failure Hospital Course: Fluid was taken off by diuretics. Echocardiogram report still pending. PFT showed good response to bronchodilators. - Patient Instructions Diet: Heart Healthy Diet Activity: As Tolerated - Discharge Plan Home Medications: Home Meds Simvastatin [Zocor] 20 mg PO BEDTIME 04/16/15 [History] Flecainide Acetate 1 tab PO BID #0 02/25/17 [Rx] Hypromellose [Natural Balance Tears] 2 drop EYEBOTH QID #1 bottle 02/25/17 [Rx] Warfarin [Coumadin] 5 mg PO ASDIRECTED #30 tablet 02/25/17 [Rx] Albuterol/Ipratropium [DuoNeb 3.0-0.5 MG/3 ML] 3 ml NEB QIDRT neb 03/18/17 [Rx] Budesonide [Pulmicort] 0.5 mg NEB BIDRT neb 03/18/17 [Rx] Carvedilol [Coreg] 3.125 mg PO BIDMEALS tablet 03/18/17 [Rx] Flecainide [Tambocor] 100 mg PO BID tablet 03/18/17 [Rx] Furosemide [Lasix] 20 mg PO DAILY tablet 03/18/17 [Rx] Potassium Chloride [Klor-Con M20] 20 meq PO DAILY@0800 tab.er 03/18/17 [Rx] Warfarin [Coumadin] 2.5 mg PO We@1800 #30 tablet 03/18/17 [Rx] Forms: ED Department Discharge Referrals: Wayne Luna Sr, MD [Primary Care Provider] - - Discharge Summary/Plan Comment Discharge Summary/Plan Comment: Assessment/Plan: #1. Pulmonary Edema with history of CHF Stable presently. #2. History of HTN: Stable. Will continue to hold Lisinopril. #3. Atrial Fib. Chronic with tachycardia controlled by Flecainide. #4. Hx of Melanoma of the face: Treated and stable. #5. History of Endocarditis: #6. No evidence of pneumonia as per x-ray report which matches clinical impression. #7. COPD: She had a PFT this morning which showed good response to bronchodilators. These were given today and she feels much better. Plan to discharge to [place] today - Review of Systems General: Reports: Weakness HEENT: Reports: No Symptoms Pulmonary: Reports: Shortness of Breath Cardiovascular: Reports: No Symptoms Gastrointestinal: Reports: No Symptoms Genitourinary: Reports: No Symptoms Musculoskeletal: Reports: No Symptoms Skin: Reports: No Symptoms Neurological: Reports: No Symptoms Psychiatric: Reports: No Symptoms - Patient Data Vitals - Most Recent: Last Vital Signs Temp 98.8 F 03/18/17 07:24 Pulse 92 03/18/17 07:47 Resp 18 03/18/17 07:24 BP 111/51 L 03/18/17 07:47 Pulse Ox 97 03/18/17 07:24 Weight - Most Recent: 140 lb 1.6 oz I&O - Last 24 hours: Intake & Output 03/17/17 03/18/17 03/18/17 22:59 06:59 14:59 Intake Total 640 480 480 Output Total 650 400 400 Balance -10 80 80 Lab Results - Last 24 hrs: Laboratory Results - last 24 hr 03/18/17 Range/Units 05:00 PT 34.4 H (9.5-12.0) sec INR 3.07 H (0.80-1.20) Med Orders - Current: Current Medications Acetaminophen (Tylenol) 650 mg PO Q4H PRN PRN Reason: Pain (Mild 1-3)/fever Last Admin: 03/15/17 15:40 Dose: 650 mg Albuterol/Ipratropium (Duoneb 3.0-0.5 Mg/3 Ml) 3 ml NEB QIDRT [facility] Last Admin: 03/18/17 07:27 Dose: 3 ml Albuterol/Ipratropium (Duoneb 3.0-0.5 Mg/3 Ml) 3 ml NEB QIDRT PRN PRN Reason: Shortness of Breath Artificial Tears (Natural Balance Tears) 0 ml EYEBOTH QID [facility] Last Admin: 03/18/17 07:46 Dose: 1 drop Budesonide (Pulmicort) 0.5 mg NEB BIDRT [facility] Last Admin: 03/18/17 07:27 Dose: 0.5 mg Carvedilol (Coreg) 3.125 mg PO BIDMEALS [facility] Last Admin: 03/18/17 07:47 Dose: 3.125 mg Digoxin (Lanoxin) 125 mcg PO DAILY@1300 [facility] Last Admin: 03/17/17 13:29 Dose: 125 mcg Flecainide Acetate (Tambocor) 100 mg PO BID [facility] Last Admin: 03/18/17 08:04 Dose: 100 mg Furosemide (Lasix) 20 mg PO DAILY [facility] Last Admin: 03/18/17 08:03 Dose: 20 mg Potassium Chloride (Klor-Con M20) 20 meq PO DAILY@0800 [facility] Last Admin: 03/18/17 07:47 Dose: 20 meq Simvastatin (Zocor) 20 mg PO BEDTIME [facility] Last Admin: 03/17/17 20:56 Dose: 20 mg Warfarin Sodium (Coumadin) 5 mg PO SuMoTuThFrSa@1800 [facility] Last Admin: 03/16/17 17:48 Dose: 5 mg Warfarin Sodium (Coumadin) 2.5 mg PO We@1800 [facility] Discontinued Medications Albuterol (Proventil Neb Soln) 2.5 mg NEB ONETIME ONE Stop: 03/13/17 00:22 Last Admin: 03/13/17 00:29 Dose: 2.5 mg Albuterol (Proventil Neb Soln) Confirm Administered Dose 2.5 mg .ROUTE .STK-MED ONE Stop: 03/17/17 08:14 Last Admin: 03/17/17 08:17 Dose: 2.5 mg Albuterol (Proventil Neb Soln) 2.5 mg NEB ONETIME ONE Stop: 03/17/17 08:14 Last Admin: 03/18/17 08:58 Dose: Not Given Carvedilol (Coreg) 12.5 mg PO BIDMEALS [facility] Last Admin: 03/13/17 08:12 Dose: 12.5 mg Carvedilol (Coreg) 6.25 mg PO BIDMEALS [facility] Last Admin: 03/13/17 16:58 Dose: 6.25 mg Carvedilol (Coreg) 3.125 mg PO BIDMEALS [facility] Last Admin: 03/14/17 15:27 Dose: Not Given Carvedilol (Coreg) 3.125 mg PO BIDMEALS [facility] Digoxin (Lanoxin) 250 - 500 mcg IV ONETIME [facility] Last Admin: 03/13/17 03:25 Dose: 250 mcg Fludrocortisone Acetate (Florinef) 0.1 mg PO ONETIME ONE Stop: 03/15/17 18:23 Last Admin: 03/15/17 20:03 Dose: 0.1 mg Furosemide (Lasix) 60 mg IVPUSH ONETIME ONE Stop: 03/12/17 23:53 Last Admin: 03/13/17 00:18 Dose: 60 mg Sodium Chloride (Normal Saline) 1,000 mls @ 30 mls/hr IV ASDIRECTED [facility] Last Admin: 03/14/17 12:09 Dose: 30 mls/hr Furosemide 100 mg/ Sodium (Chloride) 100 mls @ 6 mls/hr IV DAILY [facility] PRN Reason: 6 MG/HR Last Admin: 03/13/17 02:52 Dose: 6 mg/hr, 6 mls/hr Furosemide 100 mg/ Sodium (Chloride) 100 mls @ 6 mls/hr IV Q16H [facility] PRN Reason: 6 MG/HR Furosemide 100 mg/ Sodium (Chloride) 100 mls @ 2 mls/hr IV TITRATE [facility]; 2 MG/HR PRN Reason: Protocol Last Admin: 03/14/17 08:55 Dose: 2 mg/hr, 2 mls/hr Dobutamine HCl/Dextrose (Dobutamine In D5w 250 Mg/250 Ml) 250 mg in 250 mls @ 1.809 mls/hr IV TITRATE [facility]; 0.5 MCG/KG/MIN PRN Reason: Protocol Last Titration: 03/14/17 02:20 Dose: 7 mcg/kg/min, 25.326 mls/hr Sodium Chloride (Normal Saline) 250 mls @ 498 mls/hr IV ASDIRECTED [facility] Last Admin: 03/14/17 05:03 Dose: 498 mls/hr Norepinephrine Bitartrate 4 mg (/ Dextrose/Water) 250 mls @ 7.5 mls/hr IV TITRATE [facility]; 2 MCG/MIN PRN Reason: Protocol Sodium Chloride (Normal Saline) 150 mls @ 300 mls/hr IV .BOLUS ONE Stop: 03/14/17 05:11 Last Admin: 03/14/17 05:40 Dose: 300 mls/hr Sodium Chloride (Normal Saline) 1,000 mls @ 75 mls/hr IV ASDIRECTED [facility] Last Admin: 03/15/17 01:19 Dose: 75 mls/hr Lisinopril (Prinivil) 2.5 mg PO DAILY PRN PRN Reason: SBP > 100 Last Admin: 03/13/17 14:39 Dose: 2.5 mg Pneumococcal Polyvalent Vaccine (Pneumovax 23) 0.5 ml IM .ONCE ONE Stop: 03/17/17 16:01 Last Admin: 03/17/17 16:59 Dose: 0.5 ml - Exam General: Reports: Alert, Oriented HEENT: Reports: Pupils Equal, Pupils Reactive, EOMI, Mucous Membr. Moist/[place] Neck: Reports: Supple Lungs: Reports: Clear to Auscultation, Normal Respiratory Effort Cardiovascular: Reports: Regular Rate, Regular Rhythm GI/Abdominal Exam: Normal Bowel Sounds, Soft, Non-Tender, No Organomegaly, No Distention, No Abnormal Bruit, No Mass, Pelvis Stable Extremities: Normal Inspection, Non-Tender Skin: Reports: Warm, Dry, Intact *Q Meaningful Use (DIS) - VTE *Q VTE Criteria *Q: - Stroke *Q Stroke Criteria *Q: - AMI *Q AMI Criteria *Q:
== END 2017-03-18 11:30 | DRG 293 ==
LOC: JP.ED 23:40 → JP.ICU 03-13 01:13 → JP.MS 03-16 11:30
PROVIDERS: ADMIT Internal Medicine; ATTEND Internal Medicine
DX: I11.0 Hypertensive heart disease with heart failure (principal); I50.9 Heart failure, unspecified; I48.2 Chronic atrial fibrillation; Z79.01 Long term (current) use of anticoagulants; Z66 Do not resuscitate; R06.02 Shortness of breath; I95.9 Hypotension, unspecified; E78.00 Pure hypercholesterolemia, unspecified; Z85.820 Personal history of malignant melanoma of skin; Z23 Encounter for immunization; H54.7 Unspecified visual loss; Z88.1 Allergy status to other antibiotic agents; Z88.0 Allergy status to penicillin; Z88.2 Allergy status to sulfonamides; Z88.7 Allergy status to serum and vaccine; Z88.8 Allergy status to other drugs, medicaments and biological substances; J44.9 Chronic obstructive pulmonary disease, unspecified
CPT/HCPCS: 36415; 51702; 71045 ×2; 81001; 83605; 87804 ×2; 93005; 94640; 94660; 96374; 99284; 99285; J1940; 36600; 80048; 80053; 82550; 82803; 83880; 84484; 85025; 85610; 90732; 93010; 93306; 94060; 97110-GP; 97162-GP; 97530-GP; A9270-GY; J1160; J1250; J7030; J7040; J7050; J7620; J7626

== ENCOUNTER 2017-04-20 15:15 | Emergency (ER) | payer MEDICARE, OTHER ==
--- NOTE | 2017-04-20 15:35 | EDM.PDOC ---
ED HPI GENERAL MEDICAL PROBLEM - General Chief Complaint: Head Injury Stated Complaint: FALL VIA [place]TH Time Seen by Provider: 04/20/17 15:15 Source of Information: Reports: Patient, EMS, Provider History Limitations: Reports: No Limitations - History of Present Illness INITIAL COMMENTS - FREE TEXT/NARRATIVE: 77-year-old retirement patient fell yesterday striking the right parietal area of the head, with some bruising of the right shoulder. She is on Coumadin, and today she's had intermittent headaches, confusion and nausea so her primary provider center in for a CT of her head. She has also developed some mild neck discomfort, that did not hurt yesterday. She is basically here for the CT. Onset: Sudden (Yesterday) Location: Reports: Head, Upper Extremity, Right Severity: Moderate Associated Symptoms: Reports: Confusion, Loss of Appetite, Nausea/Vomiting - Related Data Allergies Allergy/AdvReac Type Severity Reaction Status Date / Time amlodipine Allergy Cannot Verified 03/13/17 00:41 Remember ampicillin Allergy Cannot Verified 03/13/17 00:41 Remember cephalexin monohydrate Allergy Cannot Verified 03/13/17 00:41 [From Keflex] Remember Cephalosporins Allergy Cannot Verified 03/13/17 00:41 Remember diltiazem Allergy Cannot Verified 03/13/17 00:41 Remember Penicillins Allergy Cannot Verified 03/13/17 00:41 Remember Sulfa (Sulfonamide Allergy Cannot Verified 03/13/17 00:41 Antibiotics) Remember FLU SHOT Allergy Cannot Uncoded 03/13/17 00:41 Remember Home Meds: Home Meds Simvastatin [Zocor] 20 mg PO BEDTIME 04/16/15 [History] Flecainide Acetate 1 tab PO BID #0 02/25/17 [Rx] Hypromellose [Natural Balance Tears] 2 drop EYEBOTH QID #1 bottle 02/25/17 [Rx] Warfarin [Coumadin] 5 mg PO ASDIRECTED #30 tablet 02/25/17 [Rx] Albuterol/Ipratropium [DuoNeb 3.0-0.5 MG/3 ML] 3 ml NEB QIDRT neb 03/18/17 [Rx] Budesonide [Pulmicort] 0.5 mg NEB BIDRT neb 03/18/17 [Rx] Carvedilol [Coreg] 3.125 mg PO BIDMEALS tablet 03/18/17 [Rx] Flecainide [Tambocor] 100 mg PO BID tablet 03/18/17 [Rx] Furosemide [Lasix] 20 mg PO DAILY tablet 03/18/17 [Rx] Potassium Chloride [Klor-Con M20] 20 meq PO DAILY@0800 tab.er 03/18/17 [Rx] Warfarin [Coumadin] 2.5 mg PO We@1800 #30 tablet 03/18/17 [Rx] Past Medical History HEENT History: Reports: Impaired Vision Cardiovascular History: Reports: Afib, High Cholesterol, Hypertension, Syncope Other Cardiovascular History: cardioversion April, Respiratory History: Reports: Bronchitis, Recurrent Gastrointestinal History: Reports: Chronic Diarrhea Other Gastrointestinal History: diarrhea last 1.5 months Musculoskeletal History: Reports: Osteoporosis Oncologic (Cancer) History: Reports: Other (See Below) Other Oncologic History: skin Dermatologic History: Reports: Other (See Below) Other Dermatologic History: 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 - Infectious Disease History Infectious Disease History: Reports: Chicken Pox, Measles, Mumps - Past Surgical History HEENT Surgical History: Reports: Cataract Surgery, Eye Surgery, Tonsillectomy GI Surgical History: Reports: Cholecystectomy Musculoskeletal Surgical History: Reports: None Dermatological Surgical History: Reports: Skin Biopsy Social & Family History - Family History Family Medical History: Noncontributory Cardiac: Reports: CAD Neurological: Reports: CVA - Tobacco Use Smoking Status *Q: Never Smoker Second Hand Smoke Exposure: No - Caffeine Use Caffeine Use: Reports: Coffee - Recreational Drug Use Recreational Drug Use: No ED ROS GENERAL - Review of Systems Review Of Systems: See Below Constitutional: Denies: Fever, Chills Respiratory: Denies: Shortness of Breath Cardiovascular: Denies: Chest Pain GI/Abdominal: Reports: Nausea, Vomiting. Denies: Abdominal Pain : Reports: No Symptoms Neurological: Reports: Confusion, Headache (Mild intermittent headaches) ED EXAM, HEAD INJURY - Physical Exam Exam: See Below (Mild) Exam Limited By: No Limitations General Appearance: Alert, No Apparent Distress Head: Other (Patient has a large ecchymotic area of the right parietal scalp extending to the temporal area on the right side. It is tender to touch. No crepitus.) Eyes: Bilateral Eye: Normal Inspection Neck: Other (Patient has mild discomfort with movement of the neck but no midline tenderness or bony tenderness) Respiratory: No Respiratory Distress Extremities: Other (Superficial bruising is present over the right shoulder and upper right arm, no bony tenderness, no pain with passive range of motion) Neurologic: No Motor/Sensory Deficits, Normal Mood/Affect Course - Vital Signs Last Recorded V/S: Last Vital Signs Temp 96 F 04/20/17 15:23 Pulse 83 04/20/17 16:15 Resp 16 04/20/17 16:15 BP 102/55 L 04/20/17 16:15 Pulse Ox 97 04/20/17 16:15 - Orders/Labs/Meds Orders: Active Orders 24 hr Category Date Time Status Cervical Spine wo Cont [CT] Stat Exams 04/20/17 15:36 Taken Head wo Cont [CT] Stat Exams 04/20/17 15:31 Taken - Re-Assessments/Exams Free Text/Narrative Re-Assessment/Exam: 04/20/17 15:35 CT the head without contrast was obtained. 04/20/17 15:40 I also had a cervical spine because of the neck pain and advanced age. This will be a CT without contrast as well. 04/20/17 16:[address] showed no intracranial acute findings, cervical spine some arthritis but no acute fracture. Patient's primary provider was informed and she was sent back to her long-term [facility] care facility. Departure - Departure Time of Disposition: 18:07 Disposition: DC/Tfer to [facility] Condition: Fair Clinical Impression: Hematoma of right parietal scalp Qualifiers: Encounter type: initial encounter Qualified Code(s): S00.03XA - Contusion of scalp, initial encounter - Discharge Information Instructions: Head Injury, Adult, [id number] Referrals: PCP,None [Primary Care Provider] - Forms: ED Department Discharge Care Plan Goals: Continue treating symptoms conservatively, increase activity as tolerated. Return for reevaluation if worsening or concerns. - My Orders Last 24 Hours: My Active Orders 04/20/17 15:31 Head wo Cont [CT] Stat 04/20/17 15:36 Cervical Spine wo Cont [CT] Stat - Assessment/Plan Last 24 Hours: My Active Orders 04/20/17 15:31 Head wo Cont [CT] Stat 04/20/17 15:36 Cervical Spine wo Cont [CT] Stat
[2017-04-20 16:16] VITALS: BP 102/55
== END 2017-04-20 18:07 ==
LOC: JP.ED 15:15
DX: S00.03XA Contusion of scalp, initial encounter (principal); E78.00 Pure hypercholesterolemia, unspecified; I10 Essential (primary) hypertension; W18.00XA Striking against unspecified object with subsequent fall, initial encounter; Y92.129 Unspecified place in nursing home as the place of occurrence of the external cause; Z88.1 Allergy status to other antibiotic agents; Z88.0 Allergy status to penicillin; Z88.8 Allergy status to other drugs, medicaments and biological substances; Z88.2 Allergy status to sulfonamides; Z88.7 Allergy status to serum and vaccine; Z79.899 Other long term (current) drug therapy
CPT/HCPCS: 70450; 72125; 99284; 99285-25